=== PATIENT | male | born 1940 | race Caucasian/White ===

== ENCOUNTER 2016-12-09 11:18 | Emergency (ER) | payer OTHER, BC ==
[~2016-12-09] VITALS: Ht 170.2 cm; Wt 107.6 kg
[~2016-12-09 11:18] MED LIST: CHOL2000 PO; CMD1 PO; COEN1CAP40 PO; DOXA-10 PO; ESCI10TA17 PO; FINA5TAB PO; METO-478 PO; OMEG1CAP90 PO; POTA1080 PO; PRED-301 PO; ROSU5TAB PO
[2016-12-09 11:21] VITALS: Ht 170.2 cm; Wt 107.6 kg
--- NOTE | 2016-12-09 12:17 | DIAGNOSTIC IMAGING REPORT ---
RIGHT RIBS UNILATERAL WITH PA CHEST CLINICAL HISTORY: FALL, CHEST INJURY Right COMPARISON STUDY: Chest 08/29/2015. FINDINGS: Right-sided ventriculoperitoneal shunt is again noted. The heart remains mildly enlarged. No focal lung consolidations. No evidence for pulmonary edema. No pleural effusions. No pneumothorax. No rib fractures. IMPRESSION: No rib fractures. No pneumothorax. Stable mild cardiomegaly. Electronically signed by: Amor Galaviz M.D. 12/09/2016 12:15 PM Dictated Date/Time: 12/09/2016 12:11 PM
[2016-12-09] MEDS ORDERED: NUTR-218 PO (12:27)
[2016-12-09] MEDS ORDERED: OPTIRAY 320 IV PRN (12:45)
[2016-12-09 13:07] LABS: BASO % 0.3 %; BASO ABS # 0.04 K/uL (0-0.2); COMPLETE YES; EOS % 0.2 %; HEMATOCRIT 51.5 % (42-52); IG% 0.9 %; LYMPH % 5.9 %; LYMPH ABS # 0.83 K/uL (1.2-3.4); MEAN CELL VOLUME 95.9 fL (80-100); MEAN CORPUSCULAR HEMOGLOBIN 31.3 pg (25-34); MEAN CORPUSCULAR HGB CONC 32.6 g/dl (32-36); MEAN PLATELET VOLUME 10.5 fL (7.4-10.4); MONO % 6.9 %; NEUT % 85.8 %; PLATELET COUNT 203 K/uL (130-400); RED BLOOD COUNT 5.37 M/uL (4.7-6.1); WHITE BLOOD COUNT 13.97 K/uL (4.8-10.8)
[2016-12-09 13:20] LABS: INR 2.6 (0.9-1.1); PARTIAL THROMBOPLASTIN RATIO 1.3; PROTHROMBIN TIME (PATIENT) 29.5 SECONDS (9.0-12.0)
[2016-12-09] MEDS ORDERED: ONDANSETRON INJ 2 MG/ML 2 ML VIAL IV STA (13:43)
[2016-12-09] MEDS ORDERED: HYDROmorphone INJ 0.5 MG/0.5 ML SYR IV PRN (13:45)
[2016-12-09 14:02] LABS: BUN/CREATININE RATIO 12.5 (10-20); CREATININE 1.2 mg/dl (0.60-1.40); POTASSIUM 4.7 mmol/L (3.5-5.1)
[2016-12-09 14:03] LABS: CALCIUM 9.1 mg/dl (8.5-10.1)
--- NOTE | 2016-12-09 14:19 | DIAGNOSTIC IMAGING REPORT ---
ABDOMEN AND PELVIS CT WITH IV CONTRAST CT DOSE: 1285.18 mGy.cm HISTORY: RUQ impact, fall, RUQ TENDERNESS TO PALPATION., on coumadin TECHNIQUE: Multiaxial CT images of the abdomen and pelvis were performed following the use of intravenous contrast. COMPARISON STUDY: Abdomen and pelvis CT 08/19/2015. FINDINGS: The heart is mildly enlarged. Mild interstitial thickening at the lung bases. Nondisplaced fracture within the right anterior seventh rib cartilage. Small overlying soft tissue contusion within the right anterior chest wall. There is a right-sided ventriculoperitoneal shunt with the tip terminating in the left midabdomen anteriorly. No fluid collections surrounding the shunt catheter. No pneumoperitoneum. No pneumatosis. The liver, gallbladder, spleen, pancreas, and adrenal glands are unremarkable. Bilateral cortical renal scarring. A few subcentimeter hypodense lesions within the kidneys which are too small to characterize. Dominant lesion within the right kidney measures 9.5 mm within the lower pole. Left-sided nephrolithiasis. Dominant stone is seen within the left renal pelvis and measures 9 mm. The bladder is unremarkable. No bowel wall thickening or obstruction. Colonic diverticulosis. IMPRESSION: 1. A nondisplaced fracture within the right anterior seventh rib cartilage. 2. Colonic diverticulosis. No bowel wall thickening or obstruction. 3. Left-sided nephrolithiasis. No hydronephrosis. 4. Additional findings as described above. Electronically signed by: Amor Galaviz M.D. 12/09/2016 2:18 PM Dictated Date/Time: 12/09/2016 2:09 PM
[2016-12-09] MEDS ORDERED: DOXYCYCLINE HYCLATE 100 MG CAP PO ONE (15:56)
[2016-12-09] MEDS ORDERED: EMPTY 8 DRAM VIAL ONE (15:57)
[2016-12-09] MEDS ORDERED: DOXYCYCLINE HYCLATE 100 MG CAP PO STA (16:00)
[2016-12-09] MEDS ORDERED: OXYC1TAB3 PO (16:04)
[2016-12-09 16:26] VITALS: BP 151/86; PULSE 98; TEMP 36.8; O2SAT 93
--- NOTE | 2016-12-09 20:36 | EMERGENCY ROOM VISIT NOTE ---
History Report prepared by Mike: Aimee De La Rosa Under the Supervision of: Dr. Corby Ruby M.D. First contact with patient: 12:18 Chief Complaint: CHEST INJURY Stated Complaint: RIGHT SIDED CHEST INJURY-WET FLOOR History of Present Illness The patient is a 76 year old male who presents to the Emergency Room with complaints of persistent right rib and chest pain that began prior to arrival. He currently rates his discomfort as a 5/10 in severity. The patient states that today he slipped on wet concrete and fell onto a flat surface onto his right ribs. He denies any head trauma. The patient states that he is on Coumadin for his Atrial Fibrillation. He states that he has had his INR checked within the last month. The patient states that his tetanus is up to date. He states that he took two ibuprofen for his discomfort. The patient reports increased pain with breathing. The patient additionally notes that he scratched his right arm due to the fall. He reports that he has a history of a [employer]OR [employer] shunt for normal pressure hydrocephalus. Additionally, the patient's reports that the patient had a tick bite a few days ago to his left arm, noting that she doesn't feel that she got the entire tick out. She states that the tick was on the patient for over 24 hours until he noticed the tick. Pt denies LOC, headache, visual changes, neck pain, breathing difficulties, nausea, vomiting, abdominal pain, back pain, numbness, weakness, or other complaints. Source of History: patient Onset: prior to arrival Position: chest (right), other (right rib) Symptom Intensity: 5/10 Timing: other (persistent) Modifying Factors (Worsening): breathing Note: Associated Symptoms: scratches on right arm Review of Systems See HPI for pertinent positives and negatives. A total of ten systems were reviewed and were otherwise negative. 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 Family History Kidney disease Kidney stones Social History Smoking Status: Never Smoker Alcohol Use: none Marital Status: Housing Status: lives with significant other Occupation Status: retired Current/Historical Medications Scheduled Cholecalciferol (Vitamin D3), 2,000 MG PO DAILY Coenzyme Q10 (Ubidecarenone) (Co Q-10), 400 MG PO DAILY Doxazosin Mesylate (Doxazosin Mesylate), 8 MG PO DAILY Escitalopram (Lexapro), 10 MG PO DAILY Finasteride (Proscar), 5 MG PO DAILY Metoprolol Succinate (Toprol Xl), 25 MG PO DAILY Nutritional Supplements (Juice Plus Fibre), Unknown Dose PO 6XWK [place]-3 Fatty Acids (Fish Oil Pearls), 1,400 MG PO BID Potassium Citrate (Urocit-K), 20 MEQ PO BID Prednisone (Prednisone), 5 MG PO DAILY Rosuvastatin Calcium (Crestor), 5 MG PO MON,WED,FRI Warfarin Sod (Coumadin), 2 MG PO DAILY Scheduled PRN Oxycodone Ir (Roxicodone Ir), 1-2 TAB PO Q4H PRN for Pain Allergies Coded Allergies: Amoxicillin (Verified Allergy, Intermediate, rash, 12/09/16) Penicillins (Verified Allergy, Unknown, AMOXICILLIN CAUSES RASH, NO RESP. PROBLEMS PER DR. LORENZO, 12/09/16) DR. LORENZO'S H&P STATES AMOX. CAUSES RASH. Physical Exam Vital Signs Date Time Temp Pulse Resp B/P Pulse Ox O2 Delivery O2 Flow Rate FiO2 12/09/16 16:26 36.8 98 16 151/86 93 12/09/16 14:20 98 16 151/86 93 Room Air 12/09/16 13:22 100 16 145/89 93 Room Air 12/09/16 11:21 36.8 86 20 134/74 99 Room Air Physical Exam GENERAL: Awake, alert, well-appearing, in no distress HENT: Normocephalic, atraumatic. Oropharynx unremarkable. EYES: Normal conjunctiva. Sclera non-icteric. NECK: Supple. No nuchal rigidity. FROM. No JVD. RESPIRATORY: Clear to auscultation. CARDIAC: Regular rate, normal rhythm. Extremities warm and well perfused. Pulses equal. ABDOMEN: Abrasion and bruise to right upper quadrant, tenderness to the right upper quadrant. Soft, non-distended. No rebound or guarding. No masses. RECTAL: Deferred. MUSCULOSKELETAL: Tenderness to right anterior ribs. Abrasion to right wrist. The back is symmetrical on inspection without obvious abnormality. There is no CVA tenderness to palpation. No joint edema. LOWER EXTREMITIES: Calves are equal size bilaterally and non-tender. No edema. No discoloration. NEURO: Normal sensorium. No sensory or motor deficits noted. SKIN: No rash or jaundice noted. Medical Decision & Procedures ER Provider Diagnostic Interpretation: Radiology results as stated below per my review and radiologist interpretation: RIGHT RIBS UNILATERAL WITH PA CHEST CLINICAL HISTORY: FALL, CHEST INJURY Right COMPARISON STUDY: Chest 08/29/2015. FINDINGS: Right-sided ventriculoperitoneal shunt is again noted. The heart remains mildly enlarged. No focal lung consolidations. No evidence for pulmonary edema. No pleural effusions. No pneumothorax. No rib fractures. IMPRESSION: No rib fractures. No pneumothorax. Stable mild cardiomegaly. Electronically signed by: Amor Galaviz M.D. 12/09/2016 12:15 PM Dictated Date/Time: 12/09/2016 12:11 PM ABDOMEN AND PELVIS CT WITH IV CONTRAST CT DOSE: 1285.18 mGy.cm HISTORY: RUQ impact, fall, RUQ TENDERNESS TO PALPATION., on coumadin TECHNIQUE: Multiaxial CT images of the abdomen and pelvis were performed following the use of intravenous contrast. COMPARISON STUDY: Abdomen and pelvis CT 08/19/2015. FINDINGS: The heart is mildly enlarged. Mild interstitial thickening at the lung bases. Nondisplaced fracture within the right anterior seventh rib cartilage. Small overlying soft tissue contusion within the right anterior chest wall. There is a right-sided ventriculoperitoneal shunt with the tip terminating in the left midabdomen anteriorly. No fluid collections surrounding the shunt catheter. No pneumoperitoneum. No pneumatosis. The liver, gallbladder, spleen, pancreas, and adrenal glands are unremarkable. Bilateral cortical renal scarring. A few subcentimeter hypodense lesions within the kidneys which are too small to characterize. Dominant lesion within the right kidney measures 9.5 mm within the lower pole. Left-sided nephrolithiasis. Dominant stone is seen within the left renal pelvis and measures 9 mm. The bladder is unremarkable. No bowel wall thickening or obstruction. Colonic diverticulosis. IMPRESSION: 1. A nondisplaced fracture within the right anterior seventh rib cartilage. 2. Colonic diverticulosis. No bowel wall thickening or obstruction. 3. Left-sided nephrolithiasis. No hydronephrosis. 4. Additional findings as described above. Electronically signed by: Amor Galaviz M.D. 12/09/2016 2:18 PM Dictated Date/Time: 12/09/2016 2:09 PM Laboratory Results 12/09/16 11:30 Red Blood Count 5.37, Mean Corpuscular Volume 95.9, Mean Corpuscular Hemoglobin 31.3, Mean Corpuscular Hemoglobin Concent 32.6, Mean Platelet Volume 10.5, Neutrophils (%) (Auto) 85.8, Lymphocytes (%) (Auto) 5.9, Monocytes (%) (Auto) 6.9, Eosinophils (%) (Auto) 0.2, Basophils (%) (Auto) 0.3, Neutrophils # (Auto) 11.97, Lymphocytes # (Auto) 0.83, Monocytes # (Auto) 0.97, Eosinophils # (Auto) 0.03, Basophils # (Auto) 0.04 12/09/16 11:30 Test 12/09/16 11:30 White Blood Count 13.97 K/uL (4.8-10.8) Red Blood Count 5.37 M/uL (4.7-6.1) Hemoglobin 16.8 g/dL (14.0-18.0) Hematocrit 51.5 % (42-52) Mean Corpuscular Volume 95.9 fL (80-100) Mean Corpuscular Hemoglobin 31.3 pg (25-34) Mean Corpuscular Hemoglobin Concent 32.6 g/dl (32-36) Platelet Count 203 K/uL (130-400) Mean Platelet Volume 10.5 fL (7.4-10.4) Neutrophils (%) (Auto) 85.8 % Lymphocytes (%) (Auto) 5.9 % Monocytes (%) (Auto) 6.9 % Eosinophils (%) (Auto) 0.2 % Basophils (%) (Auto) 0.3 % Neutrophils # (Auto) 11.97 K/uL (1.4-6.5) Lymphocytes # (Auto) 0.83 K/uL (1.2-3.4) Monocytes # (Auto) 0.97 K/uL (0.11-0.59) Eosinophils # (Auto) 0.03 K/uL (0-0.5) Basophils # (Auto) 0.04 K/uL (0-0.2) RDW Standard Deviation 48.8 fL (36.4-46.3) RDW Coefficient of Variation 13.8 % (11.5-14.5) Immature Granulocyte % (Auto) 0.9 % Immature Granulocyte # (Auto) 0.13 K/uL (0.00-0.02) Prothrombin Time 29.5 SECONDS (9.0-12.0) Prothromb Time International Ratio 2.6 (0.9-1.1) Activated Partial Thromboplast Time 34.6 SECONDS (21.0-31.0) Partial Thromboplastin Ratio 1.3 Anion Gap 9.0 mmol/L (3-11) Est Creatinine Clear Calc Drug Dose 61.3 ml/min Estimated GFR () 67.7 Estimated GFR (Non- 58.4 BUN/Creatinine Ratio 12.5 (10-20) Calcium Level 9.1 mg/dl (8.5-10.1) Total Bilirubin 0.6 mg/dl (0.2-1) Direct Bilirubin 0.1 mg/dl (0-0.2) Aspartate Amino Transf (AST/SGOT) 40 U/L (15-37) Alanine Aminotransferase (ALT/SGPT) 44 U/L (12-78) Alkaline Phosphatase 74 U/L (45-117) Total Protein 8.0 gm/dl (6.4-8.2) Albumin 3.6 gm/dl (3.4-5.0) Laboratory results reviewed by me Medications Administered Medications (Trade) Dose Ordered Sig/Patrice Route Start Time Stop Time Status Last Admin Dose Admin Ondansetron HCl (Zofran Inj) 4 mg NOW STAT IV 12/09/16 13:43 12/09/16 13:45 DC 12/09/16 13:51 4 MG Hydromorphone HCl (Dilaudid Inj) 0.5 mg Q15M PRN IV 12/09/16 13:45 12/09/16 17:04 DC 12/09/16 13:52 0.5 MG Doxycycline Hyclate (Vibramycin Cap) 200 mg STK-MED ONCE PO 12/09/16 15:56 12/09/16 15:57 DC 12/09/16 16:42 200 MG ECG Indication: chest pain Rate (beats per minute): 101 Rhythm: atrial fibrillation (with RVR) Findings: nonspecific-ST abn, PVC Comparison ECG Date: 08/19/15 Change: no significant change ED Course 1220: The patient was evaluated in room A2. A complete history and physical exam was performed. 1343: Ordered Zofran Inj 4 mg IV. 1345: Ordered Dilaudid Inj 0.5 mg IV. 1550: I reevaluated the patient and he is doing well. I removed the tick mouth from the patient. I discussed the exam findings with him and I discussed the treatment plan. He verbalized complete understanding and agreement. He is ready to go home. 1556: Ordered Vibramycin Cap 200 mg PO. Medical Decision Blood pressure screening: Patient was found to have an elevated blood pressure and was referred to their primary doctor for recheck and further treatment. Medication Reconciliation: I attest that I have personally reviewed the patient' s current medication list Triage Nursing notes reviewed. The patient's presentation and history were concerning for right-sided chest wall pain from an accidental fall. Etiologies such as fracture, dislocation, soft tissue injury, intra-abdominal, intrathoracic, intracranial as well as other traumatic pathologies were entertained. The patient was evaluated. He struck the right lower anterior ribs on a flat surface. He has an abrasion. This was treated and dressed. The patient had some right upper quadrant tenderness. He suffered no head injury. His upper extremities were benign as was the lower extremities. The patient had blood work obtained. Imaging was ordered. Chest x-ray did not reveal any abnormal findings. The patient was point tender over the ribs. The nucleus suspect a rib fracture. Because of the right upper quadrant tenderness and anticoagulation used the patient underwent CT imaging. The patient did have a slight leukocytosis which I believe is a stress response. His INR was therapeutic at 2.6. His LFTs were unremarkable. CT imaging did reveal a right- sided rib fracture but no intra-abdominal hemorrhage. The patient was treated with a dose of IV Dilaudid and Zofran and felt much better with this. I discussed conservative management with the patient and his and they were in agreement. The patient will be prescribed oxycodone which she has had in the past. He also had a tick mouth parts embedded in the left forearm. I did remove this standard fashion after alcohol skin prep using an 18-gauge needle. Bacitracin and bandages applied. Wound care was discussed. The patient was given a dose of doxycycline 200 mg to take with him and use at dinner time for prophylaxis. The patient was also given incentive spirometer. He will follow- up closely as an outpatient. If he worsens in any way he will be coming back to the emergency department for reevaluation. I did discuss the precautions with rib fractures as well as with pain medications.I gave my usual and customary discussion regarding this issue. By the evaluation outlined above other emergent etiologies such as those listed in the differential, as well as others, were deemed relatively unlikely. The patient and were informed about the findings as listed above. All questions were answered and they were pleased with the treatment. Return instructions were outlined and the patient was discharged in stable condition. The patient was referred to his PCP for follow-up for a recheck of the current condition. The chart was completed utilizing [employer] Speech voice recognition software. Grammatical errors, random word insertions, pronoun errors, and incomplete sentences are an occasional consequence of this system due to software limitations, ambient noise, and hardware issues. Any formal questions or concerns about the content, text, or information contained within the body of this dictation should be directly addressed to the physician for clarification. [place] Drug Monitoring Program Search Results: patient reviewed within database, no issues identified Impression Primary Impression: Right rib fracture Additional Impressions: Contusion of right chest wall Tick bite Scribe Attestation The scribe's documentation has been prepared under my direction and personally reviewed by me in its entirety. I confirm that the note above accurately reflects all work, treatment, procedures, and medical decision making performed by me. Departure Information Dispostion Home / Self-Care Prescriptions Oxycodone Ir (Roxicodone Ir) 5 Mg Tab 1-2 TAB PO Q4H Y for Pain, #20 TAB Prov: Corby Ruby MD 12/09/16 Referrals Corby Vega M.D. (PCP) Forms IMPORTANT VISIT INFORMATION Patient Instructions My [facility] Additional Instructions Do not drive today due to medications received in the emergency department. Oxycodone (OxyIR) 5mg: Take 1-2 pills every four hours for breakthrough pain. Avoid alcohol, operating machinery or dangerous equipment, working on ladders or roofs, DRIVING, or situations where being under the influence may be dangerous. It is recommended to use a stool softener such as Colace, 100mg twice daily while taking this medication to avoid constipation. Every two to 3 hours take slow deep breaths to exercise your lungs. Do this for about 10 minutes each time. Bruised or cracked ribs can lead to pneumonia and exercising your lungs may help prevent this. Use the incentive spirometer for the lung exercises. Return to the ER for worsening chest pain, difficulty breathing, fevers, vomiting, worsening of your condition, or as needed. Take the doxycycline 200 mg with dinner tonight. Do not take with dairy products. Follow-up with your primary care physician in 2 to 3 days for a recheck of your current condition. WOUND CARE INSTRUCTIONS: Bacitracin to wounds once daily. Use a non-stick dressing such as a large band-aid. Change the dressings once a day. Tylenol as needed for pain. Allow your wounds to air dry several hours per day when you are resting, but it is a good idea to keep them covered while sleeping to prevent irritation and the sheets sticking to the wound. Apply direct pressure for any bleeding. Return to the ER immediately for spreading redness, fevers, pus-like drainage, severe pain, or as needed. Problem Qualifiers
== END 2016-12-09 16:27 | disposition home or self-care (01) ==
LOC: C.EDB 11:20 → C.EDA 16:27
DX: S22.31XA Fracture of one rib, right side, initial encounter for closed fracture (principal); S20.211A Contusion of right front wall of thorax, initial encounter; W57.XXXA Bitten or stung by nonvenomous insect and other nonvenomous arthropods, initial encounter; I48.91 Unspecified atrial fibrillation; E11.9 Type 2 diabetes mellitus without complications; E78.5 Hyperlipidemia, unspecified; Z98.890 Other specified postprocedural states; Z87.442 Personal history of urinary calculi; Z98.2 Presence of cerebrospinal fluid drainage device; Z79.01 Long term (current) use of anticoagulants; Z79.899 Other long term (current) drug therapy; Z84.1 Family history of disorders of kidney and ureter

== ENCOUNTER → 2017-06-15 | Outpatient (CLI) | payer OTHER, BC ==
[~2017-06-15] MED LIST changes: +NUTR-218 PO
[2017-06-15 12:42] LABS: BASO % 0.3 %; BASO ABS # 0.04 K/uL (0-0.2); COMPLETE YES; EOS % 1.1 %; HEMATOCRIT 50.1 % (42-52); IG% 0.7 %; LYMPH % 16.8 %; LYMPH ABS # 2.03 K/uL (1.2-3.4); MEAN CELL VOLUME 96.3 fL (80-100); MEAN CORPUSCULAR HEMOGLOBIN 32.1 pg (25-34); MEAN CORPUSCULAR HGB CONC 33.3 g/dl (32-36); MEAN PLATELET VOLUME 11.4 fL (7.4-10.4); MONO % 8.9 %; NEUT % 72.2 %; PLATELET COUNT 192 K/uL (130-400); WHITE BLOOD COUNT 12.07 K/uL (4.8-10.8)
[2017-06-15 13:15] LABS: ESTIMATED AVERAGE GLUCOSE 123 mg/dl; HA1C FLAG Normal (Normal)
[2017-06-15 13:45] LABS: ALT/SGPT 31 U/L (12-78); AST/SGOT 23 U/L (15-37); BLOOD UREA NITROGEN 20 mg/dl (7-18); BUN/CREATININE RATIO 17.3 (10-20); CALCIUM 8.6 mg/dl (8.5-10.1); CARBON DIOXIDE 25 mmol/L (21-32); CHLORIDE 107 mmol/L (98-107); CREATININE 1.13 mg/dl (0.60-1.40); GLUCOSE 95 mg/dl (70-99); POTASSIUM 4.1 mmol/L (3.5-5.1); SODIUM 138 mmol/L (136-145)
[2017-06-15 13:48] LABS: ALB/GLOB RATIO 0.8 (0.9-2); ALKALINE PHOSPHATASE 69 U/L (45-117); CHOLESTEROL 159 mg/dl (0-200); CHOLESTEROL/HDL RATIO 3.8; HDL CHOLESTEROL 42 mg/dl; LDL CHOLESTEROL CALCULATED 92 mg/dl; TRIGLYCERIDES 124 mg/dl (0-150); VERY LOW DENSITY LIPOPROT CALC 25 mg/dl
== END | disposition home or self-care (01) ==
LOC: C.LABPVFM 08:47
PROVIDERS: ATTEND Internal Medicine Pulmonary Disease
DX: E78.00 Pure hypercholesterolemia, unspecified (principal); D86.9 Sarcoidosis, unspecified; G47.33 Obstructive sleep apnea (adult) (pediatric); G47.31 Primary central sleep apnea; R41.3 Other amnesia; S22.39XA Fracture of one rib, unspecified side, initial encounter for closed fracture; X58.XXXA Exposure to other specified factors, initial encounter

== ENCOUNTER 2018-02-21 23:45 | Emergency (ER) | payer OTHER, BC ==
[~2018-02-21] VITALS: Ht 172.7 cm; Wt 103.0 kg
[2018-02-21 23:49] VITALS: TEMP 36.5; Ht 172.7 cm; Wt 103.0 kg
[2018-02-22] MEDS ORDERED: FENTANYL CITRATE INJ 50 MCG/1 ML 2 ML VIAL IV STA (00:08)
--- NOTE | 2018-02-22 00:28 | EMERGENCY ROOM VISIT NOTE ---
History Report prepared by Mike: Brodie Hooper Under the Supervision of: Dr. Krzysztof Villatoro M.D. First contact with patient: 23:55 Chief Complaint: LEG PAIN,LEG INJURY Stated Complaint: RT LEG/KNEE PAIN History of Present Illness The patient is a 77 year old male who presents to the Emergency Room with complaints of intermittent right thigh pain that began a week ago. Patient states the pain is worsened with pressure. He adds he has a right hammer abrasion that occurred tonight after falling trying to put his shoe on. Patient is present with his . states the patient has also appeared weaker than usual lately. Patient states he still has the right thigh pain in the ER. Past medical history includes atrial fibrillation which he takes Coumadin for, Sarcoidosis which he takes chronic prednisone for, and a brain shunt. Patient states his last Coumadin level was normal. Patient adds he had a left knee surgery performed by Dr. Guy. Patient denies back pain, bowel symptoms, urinary symptoms, spasming, vision changes, other injuries, fevers, chills, abdominal pain, nausea, muscle aches, or new medications. He denies a history of vascular problems or heart attacks. Source of History: patient, spouse/significant other () Onset: A week ago Position: leg (right thigh) Timing: intermittent Modifying Factors (Relieving): other (None) Associated Symptoms: No fevers, No chills, No nausea, No abdominal pain, No back pain, No urinary symptoms Note: Negative bowel symptoms, spasming, vision changes, other injuries, and muscle aches. Review of Systems See HPI for pertinent positives & negatives. A total of 10 systems reviewed and were otherwise negative. 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 (8) Right ureteral calculus (9) SARCOIDOSIS (10) Unspecified kidney surgery Surgical Problems: (1) S/P CLOTH DRIER shunt Family History Kidney disease Kidney stones Social History Smoking Status: Never Smoker Alcohol Use: none Marital Status: Housing Status: lives with significant other Occupation Status: retired Current/Historical Medications Scheduled Cholecalciferol (Vitamin D3), 2,000 MG PO DAILY Coenzyme Q10 (Ubidecarenone) (Co Q-10), 400 MG PO DAILY Doxazosin Mesylate (Doxazosin Mesylate), 8 MG PO DAILY Escitalopram (Lexapro), 10 MG PO DAILY Finasteride (Proscar), 5 MG PO DAILY Memantine (Namenda), 10 MG PO BID Metoprolol Succinate (Toprol Xl), 25 MG PO DAILY Nutritional Supplements (Juice Plus Fibre), Unknown Dose PO 6XWK [place]-3 Fatty Acids (Fish Oil Pearls), 1,400 MG PO BID Potassium Citrate (Alkalinizer (Urocit-K 10), 20 MEQ PO BID Prednisone (Prednisone), 5 MG PO DAILY Rosuvastatin Calcium (Crestor), 5 MG PO MON,WED,FRI Warfarin Sod (Coumadin), 2 MG PO DAILY Allergies Coded Allergies: Amoxicillin (Verified Allergy, Intermediate, rash, 02/22/18) Penicillins (Verified Allergy, Unknown, AMOXICILLIN CAUSES RASH, NO RESP. PROBLEMS PER DR. GUY, 02/22/18) DR. GUY'S H&P STATES AMOX. CAUSES RASH. Physical Exam Vital Signs Date Time Temp Pulse Resp B/P (MAP) Pulse Ox O2 Delivery O2 Flow Rate FiO2 02/22/18 02:54 81 22 117/88 94 02/22/18 01:53 74 22 127/86 94 Room Air 02/22/18 00:57 93 17 145/91 93 Room Air 02/22/18 00:31 79 20 130/90 93 Room Air 02/22/18 00:29 78 02/21/18 23:49 36.5 87 24 138/84 96 Room Air Physical Exam GENERAL: Patient is uncomfortable appearing, appears weak and has difficulty sitting up, and in moderate distress. EYES: No scleral icterus, unremarkable pupils. ENT: Mucous membranes moist, no nasal congestion. NECK: No masses appreciated, no meningismus, trachea is midline. RESPIRATORY: No dyspnea. Clear to auscultation and equal bilaterally. No wheeze , no rhonchi. CARDIOVASCULAR: Irregular rate and rhythm. No murmurs, rubs, gallops appreciated. GASTROINTESTINAL: Abdomen soft, nontender, no peritonitis. Bowel sounds positive. No masses appreciated. BACK: No midline tenderness, no CVA tenderness EXTREMITIES: Vague tenderness over mid right thigh, normal motion all extremities, no cyanosis, no edema. NEUROLOGIC: Alert and oriented, no acute motor or sensory deficits, no focal weakness, cranial nerves grossly intact. SKIN: No rash, no jaundice, no diaphoresis. Medical Decision & Procedures ER Provider Diagnostic Interpretation: Radiology results and stated below per my review and interpretation: FOUR VIEW RIGHT FEMUR X-RAY: X-ray shows atherosclerotic changes, no fracture, and no dislocation. THREE VIEW LUMBAR X-RAY: X-ray shows age indeterminate compression fracture of L5, difficult to appreciate but appears similar to CT from 2017, and no dislocation. ONE VIEW PELVIS X-RAY: X-ray shows no fracture and no dislocation. Laboratory Results 02/22/18 00:15 Red Blood Count 5.28, Mean Corpuscular Volume 94.7, Mean Corpuscular Hemoglobin 32.8, Mean Corpuscular Hemoglobin Concent 34.6, Mean Platelet Volume 10.6, Neutrophils (%) (Auto) 73.5, Lymphocytes (%) (Auto) 14.4, Monocytes (%) (Auto) 9.7, Eosinophils (%) (Auto) 1.4, Basophils (%) (Auto) 0.2, Neutrophils # (Auto) 9.11, Lymphocytes # (Auto) 1.78, Monocytes # (Auto) 1.20, Eosinophils # (Auto) 0.17, Basophils # (Auto) 0.03 02/22/18 00:15 Test 02/22/18 00:15 White Blood Count 12.39 K/uL (4.8-10.8) Red Blood Count 5.28 M/uL (4.7-6.1) Hemoglobin 17.3 g/dL (14.0-18.0) Hematocrit 50.0 % (42-52) Mean Corpuscular Volume 94.7 fL (80-100) Mean Corpuscular Hemoglobin 32.8 pg (25-34) Mean Corpuscular Hemoglobin Concent 34.6 g/dl (32-36) Platelet Count 203 K/uL (130-400) Mean Platelet Volume 10.6 fL (7.4-10.4) Neutrophils (%) (Auto) 73.5 % Lymphocytes (%) (Auto) 14.4 % Monocytes (%) (Auto) 9.7 % Eosinophils (%) (Auto) 1.4 % Basophils (%) (Auto) 0.2 % Neutrophils # (Auto) 9.11 K/uL (1.4-6.5) Lymphocytes # (Auto) 1.78 K/uL (1.2-3.4) Monocytes # (Auto) 1.20 K/uL (0.11-0.59) Eosinophils # (Auto) 0.17 K/uL (0-0.5) Basophils # (Auto) 0.03 K/uL (0-0.2) RDW Standard Deviation 46.7 fL (36.4-46.3) RDW Coefficient of Variation 13.6 % (11.5-14.5) Immature Granulocyte % (Auto) 0.8 % Immature Granulocyte # (Auto) 0.10 K/uL (0.00-0.02) Erythrocyte Sedimentation Rate 11 mm/hr (0-14) Prothrombin Time 12.6 SECONDS (9.0-12.0) Prothromb Time International Ratio 1.2 (0.9-1.1) Activated Partial Thromboplast Time 27.3 SECONDS (21.0-31.0) Partial Thromboplastin Ratio 1.1 Anion Gap 7.0 mmol/L (3-11) Est Creatinine Clear Calc Drug Dose 61.0 ml/min Estimated GFR () 68.6 Estimated GFR (Non- 59.2 BUN/Creatinine Ratio 20.2 (10-20) Calcium Level 9.0 mg/dl (8.5-10.1) Magnesium Level 1.9 mg/dl (1.8-2.4) Total Bilirubin 0.3 mg/dl (0.2-1) Aspartate Amino Transf (AST/SGOT) 30 U/L (15-37) Alanine Aminotransferase (ALT/SGPT) 33 U/L (12-78) Alkaline Phosphatase 116 U/L (45-117) Total Creatine Kinase 103 U/L (39-308) C-Reactive Protein 0.94 mg/dl (0-0.29) Total Protein 7.5 gm/dl (6.4-8.2) Albumin 3.6 gm/dl (3.4-5.0) Globulin 3.9 gm/dl (2.5-4.0) Albumin/Globulin Ratio 0.9 (0.9-2) Laboratory results as reviewed by me. Medications Administered Medications (Trade) Dose Ordered Sig/Patrice Route Start Time Stop Time Status Last Admin Dose Admin Fentanyl Citrate (Fentanyl Inj) 50 mcg NOW STAT IV 02/22/18 00:08 02/22/18 00:12 DC 02/22/18 00:27 50 MCG Sodium Chloride 500 ml @ 999 mls/hr Q31M STAT IV 02/22/18 01:36 02/22/18 02:06 DC 02/22/18 01:53 999 MLS/HR Oxycodone HCl (Roxicodone Immediate Rel 5MG Home Pack) 1 homepack UD ONCE PO 02/22/18 02:15 02/22/18 02:16 DC 02/22/18 02:49 1 HOMEPACK ED Course 0004: The patient was evaluated in room B3B. A complete history and physical exam was performed. 0115: I reevaluated the patient. He states he is feeling better and sleepy after receiving his pain medications. He is agreeable to a US of his leg. Patient admits to forgetting to take his Coumadin today and possibly the day before as well. 0219: Reevaluated the patient. He states that he feels good and would like to try going home. I discussed the need for return at any time if his symptoms worsen. Discussed results and discharge instructions. He verbalized understanding and agreement. The patient is ready for discharge. Medical Decision 77 yr old male with right thigh pain bothering him last few days. Worse after walking around at wedding yesterday. No radicular symptoms otherwise nor neuro deficits. Excellent distal pulses and movement. No swelling nor bruising nor erythema. Labs without inflammatory markers nor rhabdo. On statin but isolated to single area thigh thus seems unlikely statin related. Lumbar xrays with L5 compression fracture likely old and seems similar to office nurse from CT last year. Pelvis xray unremarkable. Even a few hours post Fentanyl he is feeling much better. Suspect some mild dehydration consistent with mild BUN elevation thus IV fluids which may be helping symptoms as well. There is no evidence this is infectious. No neuro/arterial deficits on multiple checks. No DVT noted (low INR likely missed coumadin dose yesterday). He is feeling well and wishes to go home. Previously did well with Percocet thus limited number which if used and worsening RTED. He will follow up with PCP this week for discussion on further imaging, etc. He and understand they can always return if worsening or other concerns. I suspect this is MSK, possibly even small hematoma, given location, point pain, and worse with walking yesterday. Head Trauma GCS Score: 15 Medication Reconcilliation Current Medication List: was personally reviewed by me Blood Pressure Screening Patient's blood pressure: Normal blood pressure Blood pressure disposition: Did not require urgent referral Impression Primary Impression: Right thigh pain Additional Impression: Subtherapeutic international normalized ratio (INR) Scribe Attestation The scribe's documentation has been prepared under my direction and personally reviewed by me in its entirety. I confirm that the note above accurately reflects all work, treatment, procedures, and medical decision making performed by me. Departure Information Dispostion Home / Self-Care Referrals Corby Vega M.D. (PCP) Patient Instructions My [facility] Additional Instructions You have received a narcotic pain medication. These medications may cause drowsiness and should not be used with other sedative medications. Do not drive , drink alcohol, perform dangerous activities, nor make important decisions after taking these medications. vermin exterminator use or inappropriate use may lead to addiction. These may cause constipation so keep well hydrated and use stool softener as needed. Rest and avoid exertion over the next 48 hours. Return if worsening pain, developing weakness, loss of bowel/bladder function, rashes, fevers, swelling or other concerns. We are always here to help. It is important you follow up with your primary care provider in the next few days for recheck. Problem Qualifiers
[2018-02-22 00:31] LABS: BASO % 0.2 %; BASO ABS # 0.03 K/uL (0-0.2); EOS % 1.4 %; EOS ABS # 0.17 K/uL (0-0.5); HEMOGLOBIN 17.3 g/dL (14.0-18.0); LYMPH % 14.4 %; LYMPH ABS # 1.78 K/uL (1.2-3.4); MEAN CELL VOLUME 94.7 fL (80-100); MEAN CORPUSCULAR HEMOGLOBIN 32.8 pg (25-34); MEAN CORPUSCULAR HGB CONC 34.6 g/dl (32-36); MEAN PLATELET VOLUME 10.6 fL (7.4-10.4); MONO % 9.7 %; NEUT % 73.5 %; NEUT ABS # 9.11 K/uL (1.4-6.5); PLATELET COUNT 203 K/uL (130-400); RED CELL DISTRIBUTION WIDTH CV 13.6 % (11.5-14.5); RED CELL DISTRIBUTION WIDTH SD 46.7 fL (36.4-46.3); WHITE BLOOD COUNT 12.39 K/uL (4.8-10.8)
[2018-02-22 00:43] LABS: INR 1.2 (0.9-1.1); PTT PATIENT 27.3 SECONDS (21.0-31.0)
[2018-02-22 00:58] LABS: ALBUMIN 3.6 gm/dl (3.4-5.0); CREATININE 1.18 mg/dl (0.60-1.40); POTASSIUM 4.1 mmol/L (3.5-5.1); TOTAL PROTEIN 7.5 gm/dl (6.4-8.2)
[2018-02-22] MEDS ORDERED: POTATAB2 PO (01:31)
[2018-02-22] MEDS ORDERED: NMN10 PO (01:31)
[2018-02-22] MEDS ORDERED: SODIUM CHLORIDE 0.9% 500ML 500 ML IV STA (01:36)
[2018-02-22] MEDS ORDERED: OXYCODONE IR HOME PACK PO ONE (02:15)
[2018-02-22 02:54] VITALS: BP 117/88; PULSE 81; O2SAT 94
--- NOTE | 2018-02-22 06:45 | DIAGNOSTIC IMAGING REPORT ---
R FEMUR 2 VIEWS ROUTINE CLINICAL HISTORY: right thigh pain pain COMPARISON: None. DISCUSSION: Moderate degenerative changes of the right hip as well as right knee. No well-defined acute bony abnormality. Cortical margins are intact. Bony mineralization is diminished. There is no evidence for soft tissue swelling. IMPRESSION: Moderate degenerative change. Osteopenia. No acute process. The above report was generated using voice recognition software. It may contain grammatical, syntax or spelling errors. Electronically signed by: Cyrus Rocha M.D. 02/22/2018 6:44 AM Dictated Date/Time: 02/22/2018 6:42 AM
--- NOTE | 2018-02-22 06:47 | DIAGNOSTIC IMAGING REPORT ---
PELVIS 1 OR 2 VIEW ROUTINE CLINICAL HISTORY: right thigh pain pain COMPARISON: None. DISCUSSION: The bones and joint spaces appear intact. There is no evidence of fracture, dislocation or bony disease. There is no evidence for soft tissue swelling. Moderate generalized degenerative change. Osteopenia. IMPRESSION: No acute process. Degenerative change. Osteopenia. The above report was generated using voice recognition software. It may contain grammatical, syntax or spelling errors. Electronically signed by: Cyrus Rocha M.D. 02/22/2018 6:45 AM Dictated Date/Time: 02/22/2018 6:44 AM
--- NOTE | 2018-02-22 06:49 | DIAGNOSTIC IMAGING REPORT ---
L-SPINE MIN 4 VIEWS ROUTINE HISTORY: Pain. right thigh pain, history back issues COMPARISON: None. FINDINGS: Generalized degenerative change. No evidence for an acute compression deformity. Osteopenia. Degenerative change posterior elements. Several calcifications overlying the left kidney. No subluxation. Moderate degenerative change. IMPRESSION: 1. Generalized degenerative change. 2. No acute process. 3. Several calcifications overlying left kidney. The above report was generated using voice recognition software. It may contain grammatical, syntax or spelling errors. Electronically signed by: Cyrus Rocha M.D. 02/22/2018 6:47 AM Dictated Date/Time: 02/22/2018 6:46 AM
--- NOTE | 2018-02-22 07:36 | DIAGNOSTIC IMAGING REPORT ---
R VENOUS DOPP LOWER EXT UNILAT CLINICAL HISTORY: 77 years-old Male presenting with right upper leg discomfort, low INR. TECHNIQUE: Real-time grayscale and color and spectral Doppler ultrasound imaging of the veins of the right lower extremity was performed. Compression and augmentation were also utilized. COMPARISON: None. FINDINGS: RIGHT: Common femoral vein: Patent. Greater saphenous vein: Patent. Deep femoral vein: Patent. Femoral vein: Patent. Popliteal vein: Patent. Calf veins: Patent. Other: None. IMPRESSION: No evidence of deep venous thrombosis. Electronically signed by: Richar Lilly M.D. 02/22/2018 7:34 AM Dictated Date/Time: 02/22/2018 6:55 AM
== END 2018-02-22 02:51 | disposition home or self-care (01) ==
LOC: C.EDB 23:46
DX: M79.651 Pain in right thigh (principal); R79.1 Abnormal coagulation profile; N17.9 Acute kidney failure, unspecified; I48.91 Unspecified atrial fibrillation; E11.9 Type 2 diabetes mellitus without complications; E78.5 Hyperlipidemia, unspecified; N40.0 Benign prostatic hyperplasia without lower urinary tract symptoms; D86.9 Sarcoidosis, unspecified; Z79.01 Long term (current) use of anticoagulants; Z79.899 Other long term (current) drug therapy; Z88.1 Allergy status to other antibiotic agents; Z88.0 Allergy status to penicillin

== ENCOUNTER 2023-01-10 13:00 | Inpatient (IN) ==
[2023-01-10 14:00] LABS: Basophils # (auto) 0.06 K/uL (0-0.2); Basophils % (auto) 0.4 %; Eosinophils # (auto) 0.07 K/uL (0-0.50); Eosinophils % (auto) 0.5 %; Hemoglobin 15.4 g/dl (14.0-18.0); Immature Granulocytes % (auto) 0.7 %; Lymphocytes # (auto) 1.23 K/uL (1.2-3.4); Lymphocytes % (auto) 8.3 %; Mean Corpuscular Hemoglobin 31.9 pg (25.0-34.0); Mean Corpuscular Hgb Conc 32.8 g/dL (32.0-36.0); Mean Corpuscular Volume 97.3 fL (80.0-100.0); Mean Platelet Volume 10.7 fL (9.4-12.4); Monocytes # (auto) 0.63 K/uL (0.11-0.59); Monocytes % (auto) 4.3 %; Neutrophils # (auto) 12.71 K/uL (1.40-6.50); Neutrophils % (auto) 85.8 %; Platelet Count 220 K/uL (130-400); RDW Coefficient of Variation 13.8 % (11.5-14.5); RDW Standard Deviation 49.5 fL (36.4-46.3); Red Blood Count 4.83 M/uL (4.70-6.10)
--- NOTE | 2023-01-10 14:14 | Emergency Department Note ---
Impression & Plan Hallucinations, Closed rib fracture, Contusion, Parkinson disease, Leukocytosis ED Provider Note ED Provider Note NAME: BETSY NEGRON AGE:82 SEX: Male : 1940 ARRIVES VIA: Private vehicle INFORMANT: Patient ED PROVIDER(s): Rosibel Bruno DO CHIEF COMPLAINT: Hallucinations HPI: This is an 82-year-old male brought in with family at bedside due to concern for worsening mentation and accompanying hallucinations. Patient seen and evaluated here a week and a half ago following a fall. They state he has had prior falls. They state he underwent evaluation including multiple CAT scans which were negative for acute traumatic injury. They states since that fall he has been declining at home with increasing hallucinations, difficulty walking, decreased appetite. No recent change in medications. No other recent illness. Patient does have Parkinson's disease additionally and follows with Dr. Blakely of neurology. Patient denies any current pain other than the bruise at his left flank. He denies headaches, nausea, trouble breathing, change in urine or change in stools. PAST MEDICAL HISTORY:See Below PAST SURGICAL HISTORY:See Below FAMILY HISTORY:See Below SOCIAL HISTORY:See Below HOME MEDICATIONS:See Below ALLERGIES:See Below VITALS:See Below PHYSICAL EXAMINATION: GENERAL: alert, well appearing, well nourished, no distress, non-toxic EYE EXAM: normal conjunctiva, PERRL and EOM's grossly intact OROPHARYNX: no exudate, no erythema, lips, buccal mucosa, and tongue normal and mucous membranes are moist NECK: supple, no nuchal rigidity, no adenopathy, non-tender LUNGS: Clear to auscultation. Normal chest wall mechanics, no w/r/r HEART: no murmurs, S1 normal and S2 normal ABDOMEN: abdomen soft, non-tender, normo-active bowel sounds, no masses, no rebound or guarding. Large ecchymotic area with superficial abrasion noted to the left flank. Dressing from home was removed and a superficial wound approximately 4 x 3 cm was noted. A new dressing with antibiotic ointment and nonadherent gauze was applied by myself. BACK: Back is symmetrical on inspection and there is no deformity, no midline tenderness, no CVA tenderness. SKIN: no rashes, petechiae, orbruising UPPER EXTREMITIES: upper extremities are grossly normal. FROM, nml pulses b/l. LOWER EXTREMITIES: No pitting edema. FROM, nml pulses b/l. NEURO EXAM: Patient oriented to place, knows family, cranial nerves II-XII grossly intact, normal speech, no facial droop,nogross weakness of arms, no gross weakness of legs. Gross sensation intact. No ataxia. Patient did have hallucinations at bedside while I was discussing his case with his son. Vital Signs: reviewed and remarkable Differential Diagnosis: ICH, CVA, UTI, FRANCIS, electrolyte abnormality, anemia, worsening Parkinsons, dementia, as well as others were considered MEDICAL DECISION MAKING: This is an 82 yo male who presents to the ER with son due to concern for wor sening hallucinations since a fall over a week ago. VS stable and pt afebrile. Prior imaging negative but inlight of deline, xray/CT imaging was repeated. Labs drawn and sent, IV established, EKG and CXR performed and interpreted at bedside, and patient placed on telemetry. CT did reveal rib fx not previously noted. H/H stable compared to prior. CT head reassuring. Mild leukoctyosis again noted of unclear etiology. Patient is anticoagulated. Hematuria noted. UA not otherwise strongly suggestive of infection. All results discussed at bedside with the son and discussed family's concern for decline in function and worsening hallucinations. Case discussed with hospitalist for additional evaluation. Consultation(s): 1801: Discussed with Dr. Goodwin. ER Treatment Provided: See below 1540: Updated son at bedside. Diagnostics Interpreted By Me: -ECG: a.fib at 79, nml axis, nml intervals, nonspecific ST/T wave changes -Cardiac Monitoring: An order was placed for continuous cardiac monitoring. The monitor shows a rate of 82 with a.fib rhythm. -Laboratory studies: As stated above and show below. -Imaging studies: X-ray Chest: A single view study of the chest was reviewed and was negative for cardiomegaly, focal infiltrate, effusion, pulmonary edema, or wide mediastinum. 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 Extrapyramidal reaction Hypercholesterolemia Hypertension Nephrolithiasis NPH (normal pressure hydrocephalus) KEEGAN (obstructive sleep apnea) Parkinsonism Permanent atrial fibrillation Sarcoidosis Spinal stenosis Type 2 diabetes mellitus Vitamin D deficiency Surgical History H/O total knee replacement History of cataract surgery History of cystoscopy S/P appendectomy S/P colonoscopy S/P sinus surgery S/P [employer] shunt (~06/2014) Family History Father CHF (congestive heart failure) Poliomyelitis Family/Other Colon cancer Other Allergies Family history non-contributory No family history of adverse response to anesthesia No family history of bleeding disorder Social History Smoking Status: Never smoker Second Hand Exposure: No; Do You Dip or Chew Tobacco: No; Tobacco Cessation Education Requested by Patient: No Hx Alcohol Use: Yes Alcohol type: beer Hx Substance Use: No Preferred Language: Belarusian Communication Ability: Effective Communication Ability Comment: difficult r/t confusion Mammal Control Agent Required: No Beliefs That Will Affect Care: None marital status: Current Living Situation: Spouse Current Living Situation Comment: per daughter pt normally lives at home but also [facility] Other Information That Helps Us Care for You: No Feels Safe at Home: Yes Safety Concerns: Feels Safe At This Time Assistive Devices: CPAP, Glasses and Walker Allergies Allergies Allergy/AdvReac Type Severity Reaction Status Date / Time amoxicillin Allergy Intermediate rash Verified 01/10/23 16:44 Penicillins Allergy Unknown AMOXICILLIN Verified 01/10/23 16:44 CAUSES RASH, NO RESP. PROBLEMS PER DR. LORENZO [place] Meds Home Medications Medication Instructions Recorded Confirmed cholecalciferol (vitamin D3) 50 2,000 unit PO QAM 06/27/18 01/10/23 mcg (2,000 unit) capsule (Vitamin D3) acetaminophen 325 mg tablet 650 mg PO Q6H PRN pain/fever 07/19/18 01/10/23 (Tylenol) cyanocobalamin (vitamin B-12) 1,000 mcg PO QAM 03/28/21 01/10/23 1,000 mcg tablet (Vitamin B-12) melatonin 3 mg tablet 3 mg PO QPM 03/28/21 01/10/23 atorvastatin 10 mg tablet 10 mg PO DAILY 01/10/23 01/10/23 memantine 10 mg tablet 10 mg PO BID 01/10/23 01/10/23 pantoprazole 40 mg tablet,delayed 40 mg PO DAILY 01/10/23 01/10/23 release potassium citrate 10 mEq (1,080 20 meq PO BID 01/10/23 01/10/23 mg) tablet,extended release prednisone 2.5 mg tablet 2.5 mg PO DAILY 01/10/23 01/10/23 sertraline 100 mg tablet 100 mg PO DAILY 01/10/23 01/10/23 sertraline 25 mg tablet 25 mg PO DAILY 01/10/23 01/10/23 zinc acetate 50 mg (zinc) capsule 50 mg PO DAILY 01/10/23 01/10/23 Previous Rx's Medication Instructions Recorded carbidopa 25 mg-levodopa 100 mg 1 tab PO TID #270 tabs 07/29/22 tablet (Sinemet) propranolol 20 mg tablet 20 mg PO DAILY #90 tabs 08/20/22 apixaban 5 mg tablet (Eliquis) 5 mg PO BID #180 tabs 10/08/22 buspirone 5 mg tablet 5 mg PO BID #60 tabs 11/06/22 finasteride 5 mg tablet 5 mg PO QAM #90 tabs 12/22/22 oxycodone 5 mg tablet 5 mg PO Q6H PRN pain #15 tabs 01/03/23 Results & Data (ED) Vital Signs Vital Signs - 24 hr 01/10/23 13:08 01/10/23 13:13 01/10/23 13:35 Temperature 36.2 C L Temperature Source Skin Pulse Rate 85 83 84 Pulse Rate [Left Apical] Respiratory Rate 20 18 Respiratory Effort / Characteristics Non-Labored Spontaneous Respiratory Depth Normal Blood Pressure 127/72 Blood Pressure [Right Arm] Blood Pressure Mean 90 Blood Pressure Mean [Right Arm] Pulse Oximetry 96 96 Oxygen Delivery Method Room Air Room Air Sepsis Recent Fever Within 48 Hours No Sepsis New/Unexplained Change in Mental Status Yes Sepsis Action Taken by Nursing No Action Required 01/10/23 15:22 01/10/23 16:17 Temperature Temperature Source Pulse Rate Pulse Rate [Left Apical] 85 84 Respiratory Rate 19 22 Respiratory Effort / Characteristics Non-Labored Respiratory Depth Normal Blood Pressure Blood Pressure [Right Arm] 137/76 118/86 Blood Pressure Mean Blood Pressure Mean [Right Arm] 96 96 Pulse Oximetry 96 96 Oxygen Delivery Method Room Air Room Air Sepsis Recent Fever Within 48 Hours Sepsis New/Unexplained Change in Mental Status Sepsis Action Taken by Nursing Laboratory Data 01/10/23 13:25 01/10/23 13:25 Lab Results 01/10/23 01/10/23 01/10/23 Range/Units 13:25 13:25 13:25 WBC 14.80 H (4.8-10.8) K/ul RBC 4.83 (4.70-6.10) M/uL Hgb 15.4 (14.0-18.0) g/dl Hct 47.0 (42.0-52.0) % MCV 97.3 (80.0-100.0) fL MCH 31.9 (25.0-34.0) pg MCHC 32.8 (32.0-36.0) g/dL RDW Std Deviation 49.5 H (36.4-46.3) fL RDW Coeff of Faith 13.8 (11.5-14.5) % Plt Count 220 (130-400) K/uL MPV 10.7 (9.4-12.4) fL Immature Gran % (Auto) 0.7 % Neut % (Auto) 85.8 % Lymph % (Auto) 8.3 % [place] % (Auto) 4.3 % Eos % (Auto) 0.5 % Baso % (Auto) 0.4 % Neut # (Auto) 12.71 H (1.40-6.50) K/uL Lymph # (Auto) 1.23 (1.2-3.4) K/uL [place] # (Auto) 0.63 H (0.11-0.59) K/uL Eos # (Auto) 0.07 (0-0.50) K/uL Baso # (Auto) 0.06 (0-0.2) K/uL Immature Gran # (Auto) 0.10 (0.01-0.20) K/uL PT 12.8 H (9.0-12.0) Seconds INR 1.2 H (0.9-1.1) APTT 31.1 H (21.0-31.0) Seconds PTT Ratio 1.1 Sodium 139 (136-145) mmol/L Potassium 4.3 (3.5-5.1) mmol/L Chloride 107 (98-107) mmol/L Carbon Dioxide 25 (21-32) mmol/L Anion Gap 7 (3-11) BUN 25 H (6-23) mg/dl Creatinine 1.26 (0.6-1.4) mg/dl Est Cr Clr Drug Dosing 44.0 ml/min Est GFR ( Amer) 61.2 ml/min Est GFR (Non-Af Amer) 52.8 ml/min BUN/Creatinine Ratio 19.8 (10-20) Glucose 134 H (70-99(Fasting)) mg/dl Lactate (0.4-2.0) mmol/L Calcium 9.4 (8.6-10.3) mg/dl Magnesium 2.0 (1.7-2.4) mg/dl Total Bilirubin 1.1 H (0.2-1.0) mg/dl AST 22 (13-39) U/L ALT 5 L (7-52) U/L Alkaline Phosphatase 88 (34-104) U/L Ammonia (18-72) umol/L Troponin I High Sens 7.0 (0-20) pg/ml Total Protein 7.8 (6.0-8.3) gm/dl Albumin 3.8 (3.4-5.0) gm/dl Globulin 4.0 (2.5-4.0) gm/dl Albumin/Globulin Ratio 1.0 (0.9-2) Lipase 26 (11-82) U/L TSH (0.300-4.500) uIu/ml Urine Color Urine Appearance (Clear) Urine pH (4.5-7.5) Ur Specific Mott (1.000-1.030) Urine Protein (Negative) Urine Glucose (UA) (Negative) Urine Ketones (Negative) Urine Blood (Negative) Urine Nitrite (Negative) Urine Bilirubin (Negative) Urine Urobilinogen (Negative) Ur Leukocyte Esterase (Negative) Urine WBC (Auto) (0-5) /hpf Urine RBC (Auto) (0-4) /hpf U Hyaline Cast (Auto) (0-5) /lpf U Epithel Cells (Auto) (0-5) /lpf Urine Bacteria (Auto) (Negative) Ur Renal Epithelial Cell 01/10/23 01/10/23 01/10/23 Range/Units 13:25 13:25 14:27 WBC (4.8-10.8) K/ul RBC (4.70-6.10) M/uL Hgb (14.0-18.0) g/dl Hct (42.0-52.0) % MCV (80.0-100.0) fL MCH (25.0-34.0) pg MCHC (32.0-36.0) g/dL RDW Std Deviation (36.4-46.3) fL RDW Coeff of Faith (11.5-14.5) % Plt Count (130-400) K/uL MPV (9.4-12.4) fL Immature Gran % (Auto) % Neut % (Auto) % Lymph % (Auto) % [place] % (Auto) % Eos % (Auto) % Baso % (Auto) % Neut # (Auto) (1.40-6.50) K/uL Lymph # (Auto) (1.2-3.4) K/uL [place] # (Auto) (0.11-0.59) K/uL Eos # (Auto) (0-0.50) K/uL Baso # (Auto) (0-0.2) K/uL Immature Gran # (Auto) (0.01-0.20) K/uL PT (9.0-12.0) Seconds INR (0.9-1.1) APTT (21.0-31.0) Seconds PTT Ratio Sodium (136-145) mmol/L Potassium (3.5-5.1) mmol/L Chloride (98-107) mmol/L Carbon Dioxide (21-32) mmol/L Anion Gap (3-11) BUN (6-23) mg/dl Creatinine (0.6-1.4) mg/dl Est Cr Clr Drug Dosing ml/min Est GFR ( Amer) ml/min Est GFR (Non-Af Amer) ml/min BUN/Creatinine Ratio (10-20) Glucose (70-99(Fasting)) mg/dl Lactate 2.5 H* (0.4-2.0) mmol/L Calcium (8.6-10.3) mg/dl Magnesium (1.7-2.4) mg/dl Total Bilirubin (0.2-1.0) mg/dl AST (13-39) U/L ALT (7-52) U/L Alkaline Phosphatase (34-104) U/L Ammonia 29.0 (18-72) umol/L Troponin I High Sens (0-20) pg/ml Total Protein (6.0-8.3) gm/dl Albumin (3.4-5.0) gm/dl Globulin (2.5-4.0) gm/dl Albumin/Globulin Ratio (0.9-2) Lipase (11-82) U/L TSH 2.177 (0.300-4.500) uIu/ml Urine Color Urine Appearance (Clear) Urine pH (4.5-7.5) Ur Specific Mott (1.000-1.030) Urine Protein (Negative) Urine Glucose (UA) (Negative) Urine Ketones (Negative) Urine Blood (Negative) Urine Nitrite (Negative) Urine Bilirubin (Negative) Urine Urobilinogen (Negative) Ur Leukocyte Esterase (Negative) Urine WBC (Auto) (0-5) /hpf Urine RBC (Auto) (0-4) /hpf U Hyaline Cast (Auto) (0-5) /lpf U Epithel Cells (Auto) (0-5) /lpf Urine Bacteria (Auto) (Negative) Ur Renal Epithelial Cell 01/10/23 01/10/23 Range/Units 15:32 16:23 WBC (4.8-10.8) K/ul RBC (4.70-6.10) M/uL Hgb (14.0-18.0) g/dl Hct (42.0-52.0) % MCV (80.0-100.0) fL MCH (25.0-34.0) pg MCHC (32.0-36.0) g/dL RDW Std Deviation (36.4-46.3) fL RDW Coeff of Faith (11.5-14.5) % Plt Count (130-400) K/uL MPV (9.4-12.4) fL Immature Gran % (Auto) % Neut % (Auto) % Lymph % (Auto) % [place] % (Auto) % Eos % (Auto) % Baso % (Auto) % Neut # (Auto) (1.40-6.50) K/uL Lymph # (Auto) (1.2-3.4) K/uL [place] # (Auto) (0.11-0.59) K/uL Eos # (Auto) (0-0.50) K/uL Baso # (Auto) (0-0.2) K/uL Immature Gran # (Auto) (0.01-0.20) K/uL PT (9.0-12.0) Seconds INR (0.9-1.1) APTT (21.0-31.0) Seconds PTT Ratio Sodium (136-145) mmol/L Potassium (3.5-5.1) mmol/L Chloride (98-107) mmol/L Carbon Dioxide (21-32) mmol/L Anion Gap (3-11) BUN (6-23) mg/dl Creatinine (0.6-1.4) mg/dl Est Cr Clr Drug Dosing ml/min Est GFR ( Amer) ml/min Est GFR (Non-Af Amer) ml/min BUN/Creatinine Ratio (10-20) Glucose (70-99(Fasting)) mg/dl Lactate 1.0 (0.4-2.0) mmol/L Calcium (8.6-10.3) mg/dl Magnesium (1.7-2.4) mg/dl Total Bilirubin (0.2-1.0) mg/dl AST (13-39) U/L ALT (7-52) U/L Alkaline Phosphatase (34-104) U/L Ammonia (18-72) umol/L Troponin I High Sens (0-20) pg/ml Total Protein (6.0-8.3) gm/dl Albumin (3.4-5.0) gm/dl Globulin (2.5-4.0) gm/dl Albumin/Globulin Ratio (0.9-2) Lipase (11-82) U/L TSH (0.300-4.500) uIu/ml Urine Color Yellow Urine Appearance Cloudy A (Clear) Urine pH 7.5 (4.5-7.5) Ur Specific Mott 1.020 (1.000-1.030) Urine Protein Trace H (Negative) Urine Glucose (UA) Negative (Negative) Urine Ketones Negative (Negative) Urine Blood 3+ H (Negative) Urine Nitrite Negative (Negative) Urine Bilirubin Negative (Negative) Urine Urobilinogen Negative (Negative) Ur Leukocyte Esterase Trace H (Negative) Urine WBC (Auto) 10-30 H (0-5) /hpf Urine RBC (Auto) >30 H (0-4) /hpf U Hyaline Cast (Auto) 1-5 (0-5) /lpf U Epithel Cells (Auto) 10-20 H (0-5) /lpf Urine Bacteria (Auto) Negative (Negative) Ur Renal Epithelial Cell Not Reportable Administered Medications Buspirone HCl (Buspirone 5 Mg Tab) 5 mg PO BID ANTHONY Stop: 02/09/23 22:10 Last Admin: 01/11/23 09:43 Dose: 5 mg Documented By: Admin: 01/10/23 22:42 Dose: 5 mg Documented By: MICHELLE Carbidopa/Levodopa (Carbidopa/Levodopa 25/100mg Tab) 1 tab PO TID ANTHONY Stop: 02/09/23 22:10 Last Admin: 01/11/23 13:36 Dose: 1 tab Documented By: Admin: 01/11/23 09:43 Dose: 1 tab Documented By: Admin: 01/10/23 22:43 Dose: 1 tab Documented By: MICHELLE Finasteride (Finasteride 5 Mg Tab) 5 mg PO QAM ANTHONY Stop: 02/10/23 08:59 Last Admin: 01/11/23 09:44 Dose: 5 mg Documented By: MITCHEL Melatonin (Melatonin 3 Mg Tab) 3 mg PO QPM ANTHONY Stop: 02/09/23 22:10 Last Admin: 01/10/23 22:43 Dose: 3 mg Documented By: MICHELLE Pantoprazole Sodium (Pantoprazole 40 Mg Tab) 40 mg PO DAILY ANTHONY Stop: 02/10/23 08:59 Last Admin: 01/11/23 09:44 Dose: 40 mg Documented By: MITCHEL Potassium Citrate (Potassium Citrate 10 Meq Tab) 20 meq PO BID ANTHONY Stop: 02/09/23 22:10 Last Admin: 01/11/23 09:44 Dose: 20 meq Documented By: Admin: 01/10/23 22:43 Dose: 20 meq Documented By: MICHELLE Prednisone (Prednisone 2.5 Mg Tab) 2.5 mg PO DAILY ANTHONY Stop: 02/10/23 08:59 Last Admin: 01/11/23 09:44 Dose: 2.5 mg Documented By: MITCHEL Sertraline HCl (Sertraline Hcl 100 Mg Tablet) 100 mg PO DAILY ANTHONY Stop: 02/10/23 08:59 Last Admin: 01/11/23 09:45 Dose: 100 mg Documented By: MITCHEL Sertraline HCl (Sertraline Hcl 50 Mg Tablet) 25 mg PO DAILY ANTHONY Stop: 02/10/23 08:59 Last Admin: 01/11/23 09:44 Dose: 25 mg Documented By: MITCHEL Discontinued Medications Apixaban (Apixaban 5 Mg Tablet) 5 mg PO BID ANTHONY Stop: 02/09/23 22:10 Last Admin: 01/11/23 09:43 Dose: 5 mg Documented By: Admin: 01/10/23 22:42 Dose: 5 mg Documented By: MICHLELE Sodium Chloride (Nss 1000ml) 1,000 mls @ 125 mls/hr IV .Q8H ANTHONY Stop: 02/09/23 13:44 Last Admin: 01/10/23 22:29 Dose: Not Given Documented By: Infusion: 01/10/23 22:29 Dose: 0 mls/hr Documented By: Admin: 01/10/23 16:16 Dose: 125 mls/hr Documented By: MARCELO Ioversol (Optiray 320 100ml) 90 ml IV ONCE ONE Stop: 01/10/23 16:16 Last Admin: 01/10/23 16:16 Dose: 90 ml Documented By: KERRY Memantine (Memantine Hcl 10 Mg Tab) 10 mg PO BID ANTHONY Stop: 02/09/23 22:10 Last Admin: 01/10/23 22:29 Dose: Not Given Documented By: MICHELLE Imaging Data Radiologist's Impression: Chest X-Ray 01/10/23 13:13 XR chest 1V not portable HISTORY: Weakness COMPARISON: Chest 03/28/2021. FINDINGS: There are low lung volumes. The cardiac silhouette remains mildly enlarged. No new focal lung consolidations to suggest a pneumonia. No evidence for pulmonary edema. Mild chronic interstitial thickening, unchanged. Right- sided shunt catheter appears intact. IMPRESSION: No significant change compared to the prior study. No acute process. ACT 112: Negative or not required by law. Electronically signed by: Amor Galaviz M.D. 01/10/2023 2:[address] 01/10/23 13:[address] DOSE: 547.75 mGy.cm HISTORY: hallucinations TECHNIQUE: Multiaxial CT images of the head were performed without the use of i ntravenous contrast. Automated exposure control was utilized for this study. A dose lowering technique was utilized adhering to the principles of ALARA. Comparison: None. Findings: Mild mucosal thickening within the residual ethmoid air cells. The mastoid air cells are clear. No fractures within the calvarium or skull base. There is a right parietal ventriculostomy catheter again noted which crosses the midline and terminates at the left caudate head. This remains unchanged. Prior bilateral lens replacement. 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 This is likely chronic. There is no mass, hematoma, midline shift, acute infarct. The lateral ventricles remain slitlike. Impression: No significant change compared to the prior study. No acute intracranial abnormality. ACT 112: Negative or not required by law. Electronically signed by: Amor Galaviz M.D. 01/10/2023 3:25 PM Abdomen/Pelvis CT 01/10/23 15:[address] WITH IV CONTRAST CT DOSE: 1253.92 mGy.cm HISTORY: prior trauma, altered mental status. Left rib pain. TECHNIQUE: Multiaxial CT images of the abdomen and pelvis were performed following the use of intravenous contrast. A dose lowering technique was utilized adhering to the principles of ALARA. COMPARISON STUDY: Abdomen and pelvis CT 01/03/2023. FINDINGS: Chronic interstitial changes again noted at the lung bases. No pneumoperitoneum. No pneumatosis. Acute nondisplaced fractures within the left anterior eighth and ninth costochondral junctions. Soft tissue contusions within the left anterolateral abdominal wall. There is a right-sided shunt catheter which terminates in the left lower quadrant. No hepatic or splenic masses. The gallbladder, pancreas, and adrenal glands unremarkable. There are few small hypodensities within the kidneys likely representing cysts. Left-sided nephrolithiasis again noted. This includes a 1.2 cm stone within the left renal pelvis. This remains unchanged. No ureteral stones. No hydronephrosis. The main portal vein is patent. No retroperitoneal hematoma lymphadenopathy. Calcified plaque within the normal caliber abdominal aorta. No pelvic lymphadenopathy or pelvic free fluid. Normal bladder. Colonic diverticulosis. No evidence for acute diverticulitis. No bowel wall thickening or obstruction. IMPRESSION: 1. Acute nondisplaced fractures within the left anterior eighth and ninth costochondral junctions. 2. Soft tissue contusions within the left anterolateral abdominal wall. 3. Additional findings as described above. ACT 112: Negative or not required by law. Electronically signed by: Amor Galaviz M.D. 01/10/2023 4:54 PM Discharge Plan Visit Data Chief Complaint: Altered Mental Status Stated Complaint: FALLING OFTEN, ALTERED MENTAL STATUS ED Provider: Rosibel Bruno Discharge Problem: Hallucinations, Closed rib fracture, Contusion, Parkinson disease, Leukocytosis Patient Disposition: Admitted As Inpatient Discharge Instructions Interventions: ED Discharge Assessment Last Done: 01/10/23 21:50
[2023-01-10 14:17] LABS: Albumin Level 3.8 gm/dl (3.4-5.0); BUN Creatinine Ratio 19.8 (10-20); Bilirubin,Total 1.1 mg/dl (0.2-1.0); Calcium 9.4 mg/dl (8.6-10.3); Est GFR (African American) 61.2 ml/min; Est GFR (Non-African American) 52.8 ml/min; Potassium 4.3 mmol/L (3.5-5.1); Total Protein 7.8 gm/dl (6.0-8.3)
--- NOTE | 2023-01-10 14:17 | XRay Report ---
XR chest 1V not portable HISTORY: Weakness COMPARISON: Chest 03/28/2021. FINDINGS: There are low lung volumes. The cardiac silhouette remains mildly enlarged. No new focal beny ng consolidations to suggest a pneumonia. No evidence for pulmonary edema. Mild chronic interstitial thickening, unchanged. Right-sided shunt catheter appears intact. IMPRESSION: No significant change compared to the prior study. No acute process. ACT 112: Negative or not required by law. Electronically signed by: Amor aGlaviz M.D. 01/10/2023 2:16 PM
[2023-01-10 14:24] LABS: INR 1.2 (0.9-1.1); Partial Thromboplastin Ratio 1.1; Partial Thromboplastin Time 31.1 Seconds (21.0-31.0); Prothrombin Time 12.8 Seconds (9.0-12.0)
--- NOTE | 2023-01-10 15:28 | CT Scan Report ---
HEAD CT NONCONTRAST CT DOSE: 547.75 mGy.cm HISTORY: hallucinations TECHNIQUE: Multiaxial CT images of the head were performed without the use of intravenous contrast. A utomated exposure control was utilized for this study. A dose lowering technique was utilized adheri ng to the principles of ALARA. Comparison: None. Findings: Mild mucosal thickening within the residual ethmoid air cells. The mastoid air cells are cl ear. No fractures within the calvarium or skull base. There is a right parietal ventriculostomy lor ter again noted which crosses the midline and terminates at the left caudate head. This remains uncha nged. Prior bilateral lens replacement. 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 This is likely chronic. There is no mass, hematoma, midline shift, acute infarct. The lateral ventricles remain slitlike. Impression: No significant change compared to the prior study. No acute intracranial abnormality. ACT 112: Negative or not required by law. Electronically signed by: Amor Galaviz M.D. 01/10/2023 3:25 PM
[2023-01-10] MEDS ORDERED: OPTIRAY 320 100ml IV ONE (16:15)
[2023-01-10] MEDS: SODIUM CHLORIDE 0.9% 1000ML 1,000 ML IV SCH ×2 (16:16→22:29)
[2023-01-10 16:41] LABS: Appearance Urine Cloudy (Clear); Bacteria Urine Automated Negative (Negative); Bilirubin Urine Negative (Negative); Blood Urine 3+ (Negative); Color Urine Yellow; Glucose Urine UA Negative (Negative); Ketones Urine Negative (Negative); Leukocyte Esterase Urine Trace (Negative); Nitrite Urine Negative (Negative); RBC Urine Automated >30 /hpf (0-4); Urobilinogen Urine Negative (Negative); pH Urine 7.5 (4.5-7.5)
[2023-01-10 16:42] LABS: Protein Urine Trace (Negative)
--- NOTE | 2023-01-10 16:57 | CT Scan Report ---
ABDOMEN AND PELVIS CT WITH IV CONTRAST CT DOSE: 1253.92 mGy.cm HISTORY: prior trauma, altered mental status. Left rib pain. TECHNIQUE: Multiaxial CT images of the abdomen and pelvis were performed following the use of intrave nous contrast. A dose lowering technique was utilized adhering to the principles of ALARA. COMPARISON STUDY: Abdomen and pelvis CT 01/03/2023. FINDINGS: Chronic interstitial changes again noted at the lung bases. No pneumoperitoneum. No pneumat osis. Acute nondisplaced fractures within the left anterior eighth and ninth costochondral junctions. Soft tissue contusions within the left anterolateral abdominal wall. There is a right-sided shunt ca theter which terminates in the left lower quadrant. No hepatic or splenic masses. The gallbladder, pa ncreas, and adrenal glands unremarkable. There are few small hypodensities within the kidneys likely representing cysts. Left-sided nephrolithiasis again noted. This includes a 1.2 cm stone within the l eft renal pelvis. This remains unchanged. No ureteral stones. No hydronephrosis. The main portal vein is patent. No retroperitoneal hematoma lymphadenopathy. Calcified plaque within the normal caliber a bdominal aorta. No pelvic lymphadenopathy or pelvic free fluid. Normal bladder. Colonic diverticulosi s. No evidence for acute diverticulitis. No bowel wall thickening or obstruction. IMPRESSION: 1. Acute nondisplaced fractures within the left anterior eighth and ninth costochondral junctions. 2. Soft tissue contusions within the left anterolateral abdominal wall. 3. Additional findings as described above. ACT 112: Negative or not required by law. Electronically signed by: Amor Galaviz M.D. 01/10/2023 4:54 PM
--- NOTE | 2023-01-10 18:22 | History & Physical Report ---
Date of Service January 10, 2023 Assessment & Plan (1) Hallucinations: Plan: Suspect progression of his Parkinson's Consider Nuplazid if frequent, for now will utilize quetiapine as needed just for use at night. Avoid other antipsychotics and benzodiazepines. Given slow progression of symptoms over many months family wish to consider placement at this time. Stop memantine and opiates (2) Recurrent falls: Plan: Stop atorvastatin as unlikely any beenfit at this time Consider stopping Eliquis - discussed with son as below PT/OT consideration of placement (3) Skin trauma: Plan: Routine dressing for now. Consult wound care nurse. 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 Plan VTE Prohyalxis - Eliquis Diet - regular Disposition - observation to med/surg Admission and Anticipated Discharge Date Admission Date: January 10, 2023 History of Present Illness Chief Complaint: Hallucinations, recurrent falls Primary Care Provider: Corby Vega MD Elvis Reyes is an 82 year old male with Parkinson's disease who presents to the ER due to recurrent falls and hallucinations. Unable to get any significant history from the patient although he is aware he is in hospital he is unable to tell me why he is here. He denies any pain at this time or any concerns. His son at bedside provides the history. Progressive decline with worsening falls over multiple months. Appears to be increased decline the last 10 days after fall on January 03. Significant worsening visual hallucinations, difficulty with ambulation and decreased appetite. No dysphagia, nausea, vomiting, change in bowels. No headache, shortness of breath or change in urine. His son feels he is no longer safe to be at home and requesting placement. Allergies Allergy/AdvReac Type Severity Reaction Status Date / Time amoxicillin Allergy Intermediate rash Verified 01/10/23 16:44 Penicillins Allergy Unknown AMOXICILLIN Verified 01/10/23 16:44 CAUSES RASH, NO RESP. PROBLEMS PER DR. LORENZO Home Medications Medication Instructions Recorded Confirmed Type cholecalciferol (vitamin D3) 50 2,000 unit PO QAM 06/27/18 01/10/23 History mcg (2,000 unit) capsule (Vitamin D3) acetaminophen 325 mg tablet 650 mg PO Q6H PRN pain/fever 07/19/18 01/10/23 History (Tylenol) cyanocobalamin (vitamin B-12) 1,000 mcg PO QAM 03/28/21 01/10/23 History 1,000 mcg tablet (Vitamin B-12) melatonin 3 mg tablet 3 mg PO QPM 03/28/21 01/10/23 History carbidopa 25 mg-levodopa 100 mg 1 tab PO TID #270 tabs 07/29/22 01/10/23 Rx tablet (Sinemet) propranolol 20 mg tablet 20 mg PO DAILY #90 tabs 08/20/22 01/10/23 Rx apixaban 5 mg tablet (Eliquis) 5 mg PO BID #180 tabs 10/08/22 01/10/23 Rx buspirone 5 mg tablet 5 mg PO BID #60 tabs 11/06/22 01/10/23 Rx finasteride 5 mg tablet 5 mg PO QAM #90 tabs 12/22/22 01/10/23 Rx oxycodone 5 mg tablet 5 mg PO Q6H PRN pain #15 tabs 01/03/23 01/10/23 Rx atorvastatin 10 mg tablet 10 mg PO DAILY 01/10/23 01/10/23 History memantine 10 mg tablet 10 mg PO BID 01/10/23 01/10/23 History pantoprazole 40 mg tablet,delayed 40 mg PO DAILY 01/10/23 01/10/23 History release potassium citrate 10 mEq (1,080 20 meq PO BID 01/10/23 01/10/23 History mg) tablet,extended release prednisone 2.5 mg tablet 2.5 mg PO DAILY 01/10/23 01/10/23 History sertraline 100 mg tablet 100 mg PO DAILY 01/10/23 01/10/23 History sertraline 25 mg tablet 25 mg PO DAILY 01/10/23 01/10/23 History zinc acetate 50 mg (zinc) capsule 50 mg PO DAILY 01/10/23 01/10/23 History Past Med/Surg History Medical History Anxiety BPH (benign prostatic hyperplasia) 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 Extrapyramidal reaction Hypercholesterolemia Hypertension Nephrolithiasis NPH (normal pressure hydrocephalus) KEEGAN (obstructive sleep apnea) Parkinsonism Permanent atrial fibrillation Sarcoidosis Spinal stenosis Type 2 diabetes mellitus Vitamin D deficiency Surgical History H/O total knee replacement History of cataract surgery History of cystoscopy S/P appendectomy S/P colonoscopy S/P sinus surgery S/P CRAB BUTCHER shunt (~06/2014) Family History Father CHF (congestive heart failure) Poliomyelitis Family/Other Colon cancer Other Allergies Family history non-contributory No family history of adverse response to anesthesia No family history of bleeding disorder Social History Smoking Status: Never smoker Second Hand Exposure: No; Do You Dip or Chew Tobacco: No; Tobacco Cessation Education Requested by Patient: No Hx Alcohol Use: Yes Alcohol type: beer Hx Substance Use: No Preferred Language: Haitian Communication Ability: Effective Communication Ability Comment: difficult r/t confusion Coal Trammer Required: No Beliefs That Will Affect Care: None marital status: Current Living Situation: Spouse Current Living Situation Comment: per daughter pt normally lives at home but also [facility] Other Information That Helps Us Care for You: No Feels Safe at Home: Yes Safety Concerns: Feels Safe At This Time Assistive Devices: Glasses and Walker Review of Systems Review of Systems: All systems reviewed & are unremarkable except as noted in HPI & below Physical Exam Constitutional: well developed; + not well nourished and no acute distress Eyes: PERRL, conjunctivae normal, anicteric sclerae ENMT: external ear and nose normal, oropharynx normal Neck: trachea midline, no thyromegaly Respiratory: normal respiratory effort, lungs clear to auscultation Cardiovascular: RRR, no murmur, no edema Gastrointestinal (Abdomen): normal bowel sounds, soft, nontender, no hepatosplenomegaly Inspection/Auscultation: + abdomen abnormal to inspection (left abdominal ecchymosis) Musculoskeletal: no unilateral weakness, significant deformity of right upper extremity (son reports this is from a prior fall with humeral fracture). Skin: Multiple areas of trauma and skin lacerations without surrounding cellulitis on left abdomen and bilateral arms Neurologic: moves all extremities and awake; no focal motor deficits and not confused Speech / Cognition: normal speech Motor/Sensory: + tremor (resting R > L); no pronator drift Cranial Nerves: PERRL, EOM intact bilaterally, normal facial strength, tongue midline, able to rotate head bilaterally, able to elevate shoulders bilaterally, no nystagmus and symmetric palate elevation Psychiatric: Orientation: alert, oriented to person (son in room) and oriented to place (to hospital but doesn't know where); + not oriented to time (thinks it is 2023) Eye Contact: + fair eye contact Results & Data Results & Data Vital Signs (Past 12 Hours) Vital Signs Temp Pulse Pulse Resp BP BP Pulse Ox 01/10/23 16:17 84 22 118/86 96 01/10/23 15:22 85 19 137/76 96 01/10/23 13:35 84 01/10/23 13:13 83 18 96 01/10/23 13:08 36.2 C L 85 20 127/72 96 O2 Del Method 01/10/23 16:17 Room Air 01/10/23 15:22 Room Air 01/10/23 13:35 01/10/23 13:13 Room Air 01/10/23 13:08 Room Air Laboratory Results Abnormal lab results 01/10/23 01/10/23 01/10/23 Range/Units 13:25 13:25 13:25 WBC 14.80 H (4.8-10.8) K/ul RDW Std Deviation 49.5 H (36.4-46.3) fL Neut # (Auto) 12.71 H (1.40-6.50) K/uL Granite # (Auto) 0.63 H (0.11-0.59) K/uL PT 12.8 H (9.0-12.0) Seconds INR 1.2 H (0.9-1.1) APTT 31.1 H (21.0-31.0) Seconds BUN 25 H (6-23) mg/dl Glucose 134 H (70-99(Fasting)) mg/dl Lactate (0.4-2.0) mmol/L Total Bilirubin 1.1 H (0.2-1.0) mg/dl ALT 5 L (7-52) U/L Urine Appearance (Clear) Urine Protein (Negative) Urine Blood (Negative) Ur Leukocyte Esterase (Negative) Urine WBC (Auto) (0-5) /hpf Urine RBC (Auto) (0-4) /hpf U Epithel Cells (Auto) (0-5) /lpf 01/10/23 01/10/23 Range/Units 13:25 16:23 WBC (4.8-10.8) K/ul RDW Std Deviation (36.4-46.3) fL Neut # (Auto) (1.40-6.50) K/uL Granite # (Auto) (0.11-0.59) K/uL PT (9.0-12.0) Seconds INR (0.9-1.1) APTT (21.0-31.0) Seconds BUN (6-23) mg/dl Glucose (70-99(Fasting)) mg/dl Lactate 2.5 H* (0.4-2.0) mmol/L Total Bilirubin (0.2-1.0) mg/dl ALT (7-52) U/L Urine Appearance Cloudy A (Clear) Urine Protein Trace H (Negative) Urine Blood 3+ H (Negative) Ur Leukocyte Esterase Trace H (Negative) Urine WBC (Auto) 10-30 H (0-5) /hpf Urine RBC (Auto) >30 H (0-4) /hpf U Epithel Cells (Auto) 10-20 H (0-5) /lpf Diagnostic Findings HEAD CT NONCONTRAST CT DOSE: 547.75 mGy.cm HISTORY: hallucinations TECHNIQUE: Multiaxial CT images of the head were performed without the use of intravenous contrast. Automated exposure control was utilized for this study. A dose lowering technique was utilized adhering to the principles of ALARA. Comparison: None. Findings: Mild mucosal thickening within the residual ethmoid air cells. The mastoid air cells are clear. No fractures within the calvarium or skull base. There is a right parietal ventriculostomy catheter again noted which crosses the midline and terminates at the left caudate head. This remains unchanged. Prior bilateral lens replacement. 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 This is likely chronic. There is no mass, hematoma, midline shift, acute infarct. The lateral ventricles remain slitlike. Impression: No significant change compared to the prior study. No acute intracranial abnormality. XR chest 1V not portable HISTORY: Weakness COMPARISON: Chest 03/28/2021. FINDINGS: There are low lung volumes. The cardiac silhouette remains mildly enlarged. No new focal lung consolidations to suggest a pneumonia. No evidence for pulmonary edema. Mild chronic interstitial thickening, unchanged. Right- sided shunt catheter appears intact. IMPRESSION: No significant change compared to the prior study. No acute process. ABDOMEN AND PELVIS CT WITH IV CONTRAST CT DOSE: 1253.92 mGy.cm HISTORY: prior trauma, altered mental status. Left rib pain. TECHNIQUE: Multiaxial CT images of the abdomen and pelvis were performed following the use of intravenous contrast. A dose lowering technique was utilized adhering to the principles of ALARA. COMPARISON STUDY: Abdomen and pelvis CT 01/03/2023. FINDINGS: Chronic interstitial changes again noted at the lung bases. No pneumoperitoneum. No pneumatosis. Acute nondisplaced fractures within the left a nterior eighth and ninth costochondral junctions. Soft tissue contusions within the left anterolateral abdominal wall. There is a right-sided shunt catheter which terminates in the left lower quadrant. No hepatic or splenic masses. The gallbladder, pancreas, and adrenal glands unremarkable. There are few small hypodensities within the kidneys likely representing cysts. Left-sided nephrolithiasis again noted. This includes a 1.2 cm stone within the left renal pelvis. This remains unchanged. No ureteral stones. No hydronephrosis. The main portal vein is patent. No retroperitoneal hematoma lymphadenopathy. Calcified plaque within the normal caliber abdominal aorta. No pelvic lymphadenopathy or pelvic free fluid. Normal bladder. Colonic diverticulosis. No evidence for acute diverticulitis. No bowel wall thickening or obstruction. IMPRESSION: 1. Acute nondisplaced fractures within the left anterior eighth and ninth costochondral junctions. 2. Soft tissue contusions within the left anterolateral abdominal wall. 3. Additional findings as described above. Medications Administered ER Medications Given: NSS @ 125ml/hr ECG Rate (beats per minute): 79 Rhythm: atrial fibrillation Findings: + nonspecific-ST abn (Anterior) Comparison ECG Date: from (January 09, 2023) Change: no significant change Code Status & VTE Plan Code Status Full VTE Prophylaxis Plan VTE Prophylaxis will be ordered: Yes PG Care Time/CCT Total # of Minutes Spent Total Time Spent with Patient: Total time spent is greater than 50% in coordination of care (as documented) at patient's floor/unit and/or counseling patient: Coding Level of Care Code 79091 INT INP/OBS CARE 2/55MIN Diagnoses Hallucinations R44.3 Recurrent falls R29.6 Skin trauma T14.8XXA Rib fractures S22.49XA KEEGAN (obstructive sleep apnea) G47.33 Sarcoidosis D86.9 NPH (normal pressure hydrocephalus) G91.2 BPH (benign prostatic hyperplasia) N40.0 Lower urinary tract symptom presence: symptoms absent Parkinsonism G20 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
[2023-01-10] MEDS ORDERED: ACETAMINOPHEN 325 MG TAB PO PRN (22:11)
[2023-01-10] MEDS ORDERED: ONDANSETRON INJ 2 MG/ML 2 ML VIAL IV PRN (22:11)
[2023-01-10] MEDS ORDERED: POLYETHYLENE (MIRALAX) 17 GM PACK PO PRN (22:11)
[2023-01-10] MEDS ORDERED: MEMANTINE HCL 10 MG TAB PO SCH (22:11)
[2023-01-10] MEDS ORDERED: QUEtiapine FUMARATE 25 MG TABLET PO PRN (22:21)
[2023-01-10] MEDS: busPIRone 5 MG TAB PO SCH (22:42)
[2023-01-10] MEDS: APIXABAN 5 MG TABLET PO SCH (22:42)
[2023-01-10] MEDS: MELATONIN 3 MG TAB PO SCH (22:43)
[2023-01-10] MEDS: POTASSIUM CITRATE 10 MEQ TAB PO SCH (22:43)
[2023-01-10] MEDS: CARBIDOPA/LEVODOPA 25/100MG TAB PO SCH (22:43)
[2023-01-11 07:30] LABS: Basophils # (auto) 0.07 K/uL (0-0.2); Basophils % (auto) 0.5 %; Eosinophils # (auto) 0.14 K/uL (0-0.50); Eosinophils % (auto) 0.9 %; Hematocrit (blood only) 43.9 % (42.0-52.0); Hemoglobin 14.9 g/dl (14.0-18.0); Immature Granulocytes # (auto) 0.12 K/uL (0.01-0.20); Immature Granulocytes % (auto) 0.8 %; Lymphocytes # (auto) 1.88 K/uL (1.2-3.4); Lymphocytes % (auto) 12.1 %; Mean Corpuscular Hemoglobin 31.9 pg (25.0-34.0); Mean Corpuscular Hgb Conc 33.9 g/dL (32.0-36.0); Mean Platelet Volume 10.1 fL (9.4-12.4); Monocytes % (auto) 7.1 %; Neutrophils # (auto) 12.18 K/uL (1.40-6.50); Neutrophils % (auto) 78.6 %; Platelet Count 204 K/uL (130-400); RDW Coefficient of Variation 13.7 % (11.5-14.5); RDW Standard Deviation 46.9 fL (36.4-46.3); Red Blood Count 4.67 M/uL (4.70-6.10); White Blood Count 15.49 K/ul (4.8-10.8)
[2023-01-11 07:49] LABS: Albumin Globulin Ratio 0.9 (0.9-2); Albumin Level 3.4 gm/dl (3.4-5.0); Bilirubin,Total 1.4 mg/dl (0.2-1.0); C Reactive Protein 1.73 mg/dl (0-0.5); Calcium 8.9 mg/dl (8.6-10.3); Creatinine Clr Calc Pharmacy 56.5 ml/min; Est GFR (African American) 76.2 ml/min; Est GFR (Non-African American) 65.8 ml/min; Globulin 3.7 gm/dl (2.5-4.0); Potassium 4.4 mmol/L (3.5-5.1); Total Protein 7.1 gm/dl (6.0-8.3)
[2023-01-11] MEDS ORDERED: SERTRALINE HCL 50 MG TABLET PO SCH (09:00)
[2023-01-11] MEDS ORDERED: SERTRALINE HCL 100 MG TABLET PO SCH (09:00)
[2023-01-11] MEDS: CARBIDOPA/LEVODOPA 25/100MG TAB PO SCH ×3 (09:43→20:33)
[2023-01-11] MEDS: APIXABAN 5 MG TABLET PO SCH (09:43)
[2023-01-11] MEDS: busPIRone 5 MG TAB PO SCH ×2 (09:43→20:33)
[2023-01-11] MEDS: PANTOprazole 40 MG TAB PO SCH (09:44)
[2023-01-11] MEDS: predniSONE 2.5 MG TAB PO SCH (09:44)
[2023-01-11] MEDS: POTASSIUM CITRATE 10 MEQ TAB PO SCH ×2 (09:44→20:33)
[2023-01-11] MEDS: FINASTERIDE 5 MG TAB PO SCH (09:44)
--- NOTE | 2023-01-11 13:40 | Hospitalist Progress Note ---
Date of Service January 11, 2023 Assessment & Plan (1) Hallucinations: Plan: Acute/unstable - low risk - Suspect progression of his Parkinson's - Consider Nuplazid if frequent, for now will start low dose Seroquel 25mg at HS - Given slow progression of symptoms over many months family wish to consider placement at this time. - Stop memantine and opiates (2) Recurrent falls: Plan: Acute/unstable - high risk - Stop atorvastatin as unlikely any benefit at this time - Will stop Eliquis, discussed with , Gali on 01/11 via phone, she understands risk of stopping medication - PT/OT eval ordered for consideration of placement (3) Skin trauma: Plan: Acute/stable - Routine dressing for now. Consult wound care nurse. 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: Plan: Chronic/unstable - Also with NPH and Parkinsonism - Will hold memantine incase contributing towards hallucinations and unlikely much benefit at this stage - Continue Sinemet - Continue Zoloft and Buspar (9) Permanent atrial fibrillation: Plan: Chronic/stable - Rate controlled - Discussed stopping Eliquis with patient's gali today via phone - She verbalized understanding that risk of stroke will substantially increase - Do agree that the risk of Eliquis use is outweighed at this point d/t fr equent falls by the benefit Plan VTE ppx will be converted to SCDs as Eliquis is going to be discontinued as above. Start low dose Seroquel 25mg at HS. Await PT/OT evals. Contacted and updated patient's , Gali, via phone today and also his daughter, Bernadette. All are in agreement with plan. Discussed aforementioned with Dr. Caruso who is in agreement. Admission and Anticipated Discharge Date Admission Date: January 10, 2023 Supervising Physician Co-Signing Physician Notes The patient was not seen by me. The chart was reviewed. Case discussed with TINO Lopez. Agree with assessment and plan Subjective Patient seen on daily rounds this morning. When entering the room, it was noted that pt was talking to himself as no one else was in the room. He was awake and alert but not oriented to location or time. He verbalizes no complaints. Physical Exam Physical Exam: GENERAL: 82 yo well-developed, well-nourished elderly M. NAD. LUNGS: Clear to auscultation bilaterally w/o W/R/R. CARDIOVASCULAR: S1 S2 irregular NEUROLOGIC: A&O x3. No focal neurological deficits. CN II-XII grossly intact. PSYCHIATRIC: Cooperative. Appropriate mood and affect but continues to have visual hallucinations. SKIN: multiple skin abrasions/tears that are dressed. Results & Data Results & Data Vital Signs (Past 12 Hours) Vital Signs Temp Pulse Resp BP Pulse Ox O2 Del Method 01/11/23 08:00 Room Air 01/11/23 07:54 36.8 C 87 18 145/81 H 95 Room Air Laboratory Results 01/11/23 07:12 01/11/23 07:12 PG Care Time/CCT Total # of Minutes Spent Total Time Spent with Patient: Total time spent is greater than 50% in coordination of care (as documented) at patient's floor/unit and/or counseling patient: Coding Level of Care Code 85606 SUB INP/OBS CARE 2/35MIN Diagnoses Hallucinations R44.3 Recurrent falls R29.6 Skin trauma T14.8XXA Rib fractures S22.49XA KEEGAN (obstructive sleep apnea) G47.33 Sarcoidosis D86.9 BPH (benign prostatic hyperplasia) N40.0 Lower urinary tract symptom presence: symptoms absent 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
[2023-01-11] MEDS: MELATONIN 3 MG TAB PO SCH (20:33)
[2023-01-11] MEDS ORDERED: QUEtiapine FUMARATE 25 MG TABLET PO SCH (21:00)
[2023-01-12] MEDS: FINASTERIDE 5 MG TAB PO SCH (09:15)
[2023-01-12] MEDS: ASPIRIN 81 MG ECTAB PO SCH (09:15)
[2023-01-12] MEDS: CARBIDOPA/LEVODOPA 25/100MG TAB PO SCH ×3 (09:15→20:47)
[2023-01-12] MEDS: PANTOprazole 40 MG TAB PO SCH (09:16)
[2023-01-12] MEDS: predniSONE 2.5 MG TAB PO SCH (09:16)
[2023-01-12] MEDS: POTASSIUM CITRATE 10 MEQ TAB PO SCH ×2 (09:16→20:47)
[2023-01-12] MEDS: SERTRALINE HCL 50 MG TABLET PO SCH (09:16)
--- NOTE | 2023-01-12 12:42 | Hospitalist Progress Note ---
Date of Service January 12, 2023 Assessment & Plan (1) Hallucinations: Plan: Current somnolence is probably due to Seroquel that was started last night. All EXTRUSION BENDER affecting medications have been stopped. Zoloft dosage has been decreased considerably. Supportive care. (2) Recurrent falls: Plan: Eliquis has been stopped. Stopped atorvastatin too, as unlikely any benefit at this time. (3) Skin trauma: Plan: From falling at home. Local care (4) Rib fractures: Plan: Left eighth and ninth anterior fractures at the costochondral junction. Pain control measures. Supportive care. He also has old rib fractures noted on x- ray (5) KEEGAN (obstructive sleep apnea): Plan: Stable. CPAP HS (6) Sarcoidosis: Plan: Stable. Continue prednisone (7) BPH (benign prostatic hyperplasia): Plan: Stable. 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 [employer] shunt has been in place for years. Apparently he had normal pressure hydrocephalus in the past. EXTRUSION BENDER affecting medications have been discontinued. (9) Permanent atrial fibrillation: Plan: Rate controlled. Eliquis has been discontinued due to high risk associated with frequent falls Plan Anticipate discharge to SNF facility later this week Admission and Anticipated Discharge Date Admission Date: January 12, 2023 Subjective Somnolent and barely arousable this morning. He received his first dose of Seroquel last night which is probably the culprit. All EXTRUSION BENDER affecting medications have been discontinued. Zoloft dosage has been decreased considerably. Review of Systems Review of Systems: The patient cannot answer any questions regarding review of systems at this time Physical Exam Physical Exam: General-somnolent. No fevers, no chills HEENT-head atraumatic and normocephalic, pupils equal and reactive to light, extraocular muscles intact Neck-no lymphadenopathy or thyromegaly, trachea midline Chest-clear to auscultation percussion. No rales wheezing or rhonchi Cardiac-irregular controlled rhythm consistent with atrial fibrillation. Normal S1 and S2 Abdomen-normal bowel sounds, no hepatosplenomegaly Extremities-no edema Neuro-cannot assess due to somnolent state Psych-cannot assess due to somnolent state Results & Data Results & Data Vital Signs (Past 12 Hours) Vital Signs Temp Pulse Resp BP Pulse Ox O2 Del Method 01/12/23 07:44 36.3 C L 86 18 131/90 95 Room Air 01/12/23 02:11 20 96 Laboratory Results 01/11/23 07:12 01/11/23 07:12 PG Care Time/CCT Total # of Minutes Spent Total Time Spent with Patient: Total time spent is greater than 50% in coordination of care (as documented) at patient's floor/unit and/or counseling patient: Coding Level of Care Code 60587 SUB INP/OBS CARE 3/50MIN Diagnoses Hallucinations R44.3 Recurrent falls R29.6 Skin trauma T14.8XXA Rib fractures S22.49XA KEEGAN (obstructive sleep apnea) G47.33 Sarcoidosis D86.9 BPH (benign prostatic hyperplasia) N40.0 Lower urinary tract symptom presence: symptoms absent 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
[2023-01-12] MEDS: MELATONIN 3 MG TAB PO SCH (20:47)
--- NOTE | 2023-01-12 22:23 | Electrocardiogram Report ---
Test Reason : Blood Pressure : / mmHG Vent. Rate : 079 BPM Atrial Rate : 000 BPM P-R Int : 000 ms QRS Dur : 078 ms QT Int : 386 ms P-R-T Axes : 000 069 061 degrees QTc Int : 442 ms Atrial fibrillation Abnormal ECG When compared with ECG of 09-JAN-2023 15:04, QRS axis Shifted right Confirmed by Rodrigo Casas ([id number]) on 01/12/2023 10:23:38 PM Referred By: REFERRED SELF Confirmed By:Rodrigo Casas
[2023-01-13] MEDS: CARBIDOPA/LEVODOPA 25/100MG TAB PO SCH ×3 (08:44→20:35)
[2023-01-13] MEDS: FINASTERIDE 5 MG TAB PO SCH (08:44)
[2023-01-13] MEDS: ASPIRIN 81 MG ECTAB PO SCH (08:44)
[2023-01-13] MEDS: PANTOprazole 40 MG TAB PO SCH (08:44)
[2023-01-13] MEDS: POTASSIUM CITRATE 10 MEQ TAB PO SCH ×2 (08:44→20:35)
[2023-01-13] MEDS: predniSONE 2.5 MG TAB PO SCH (08:45)
[2023-01-13] MEDS: SERTRALINE HCL 50 MG TABLET PO SCH (08:45)
[2023-01-13] MEDS ORDERED: predniSONE 20 MG TAB PO STA (15:23)
--- NOTE | 2023-01-13 15:25 | Hospitalist Progress Note ---
Date of Service January 13, 2023 Assessment & Plan (1) Hallucinations: Plan: present on admission. 2nd to parkinsonism?? 2nd to medications? buspar and namenda stopped by prior attending watch for recurrent hallucinations consider MRI brain if needed CT head at admission w/o acute pathology (2) Recurrent falls: Plan: Eliquis has been stopped. Family deciding whether to resume such going forward. 5-10 falls - son's estimate - over the last several months at home. (3) Skin trauma: Plan: From falling at home. Local care (abd wall). (4) Rib fractures: Plan: Left eighth and ninth anterior fractures at the costochondral junction. Schedule tylenol 1gm TID. Lidoderms. Prednisone burst (give 20mg extra today). (5) KEEGAN (obstructive sleep apnea): Plan: Stable. CPAP HS (6) Sarcoidosis: Plan: Stable. Continue prednisone but give stress doses - 20mg extra today, 15mg extra tomorrow, and so forth. (7) BPH (benign prostatic hyperplasia): Plan: Stable. 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 Apparently he had normal pressure hydrocephalus in the past. Low threshold for MRI brain. Check a B1 level in am. B12 level 823 several months ago. (9) Permanent atrial fibrillation: Plan: Rate controlled. Eliquis has been discontinued due to high risk associated with frequent falls - see discussion above. He is not on AV stefano agents at this time. (10) Parkinsonism: Plan: Cont carbidopa-levodopa TID. Plan dispo - SNF for rehab? son updated at bedside Admission and Anticipated Discharge Date Admission Date: January 12, 2023 Subjective patient awake/alert today knows he's at the hospital and that it is 2022 son at bedside - he feels his father's mental status is much better than last week patient with NO complaints except rib pain on left and mild abd pain on left had large BM just prior to my arrival eating well Review of Systems Review of Systems: gen - no fevers cv - no orthopnea GI - no nausea/emesis pulm - no cough Physical Exam Physical Exam: gen - NAD, looks well, awake/alert mouth - MMM neck - no JVD heart - irregular, s1 s2 lungs - CTA b/l chest - tender to palpation over left lower chest wall (rib fractures) abd - mildly distended, BS+, mildly tender over abdominal wall on left, no HSM ext - no edema, pulses 2+ b/l neuro - strength 5/5 x 4 exts; no facial droop; no tremor psych - a/o x 3 musculo - no signs of trauma to any joint Results & Data Results & Data Vital Signs (Past 12 Hours) Vital Signs Temp Pulse Resp BP BP Pulse Ox O2 Del Method 01/13/23 14:28 36.5 C 91 H 16 118/72 90 Room Air 01/13/23 08:00 Room Air 01/13/23 07:05 36.9 C 91 H 18 115/76 93 Room Air PG Care Time/CCT Total # of Minutes Spent Total Time Spent with Patient: Total time spent is greater than 50% in coordination of care (as documented) at patient's floor/unit and/or counseling patient: Coding Level of Care Code 49961 SUB INP/OBS CARE 2/35MIN Diagnoses Hallucinations R44.3 Recurrent falls R29.6 Skin trauma T14.8XXA Rib fractures S22.49XA KEEGAN (obstructive sleep apnea) G47.33 Sarcoidosis D86.9 BPH (benign prostatic hyperplasia) N40.0 Lower urinary tract symptom presence: symptoms absent 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
[2023-01-13] MEDS: ACETAMINOPHEN 500 MG TAB PO SCH ×2 (16:13→20:35)
[2023-01-13] MEDS: LIDOCAINE 5% 1 PATCH TD SCH (16:40)
[2023-01-13] MEDS: MELATONIN 3 MG TAB PO SCH (20:35)
[2023-01-14 07:33] LABS: Basophils # (auto) 0.03 K/uL (0-0.2); Basophils % (auto) 0.2 %; Eosinophils # (auto) 0.01 K/uL (0-0.50); Eosinophils % (auto) 0.1 %; Hematocrit (blood only) 43.1 % (42.0-52.0); Hemoglobin 14.6 g/dl (14.0-18.0); Immature Granulocytes # (auto) 0.15 K/uL (0.01-0.20); Lymphocytes # (auto) 1.12 K/uL (1.2-3.4); Lymphocytes % (auto) 7.5 %; Mean Corpuscular Hemoglobin 32.2 pg (25.0-34.0); Mean Corpuscular Hgb Conc 33.9 g/dL (32.0-36.0); Mean Corpuscular Volume 95.1 fL (80.0-100.0); Mean Platelet Volume 10.9 fL (9.4-12.4); Monocytes # (auto) 0.72 K/uL (0.11-0.59); Monocytes % (auto) 4.8 %; Neutrophils # (auto) 12.87 K/uL (1.40-6.50); Neutrophils % (auto) 86.4 %; Platelet Count 205 K/uL (130-400); RDW Coefficient of Variation 13.6 % (11.5-14.5); RDW Standard Deviation 47.4 fL (36.4-46.3); Red Blood Count 4.53 M/uL (4.70-6.10)
[2023-01-14 07:54] LABS: Albumin Globulin Ratio 0.9 (0.9-2); Albumin Level 3.4 gm/dl (3.4-5.0); BUN Creatinine Ratio 28.3 (10-20); Bilirubin,Total 0.7 mg/dl (0.2-1.0); Calcium 8.9 mg/dl (8.6-10.3); Creatinine Clr Calc Pharmacy 49.4 ml/min; Est GFR (African American) 64.9 ml/min; Globulin 3.6 gm/dl (2.5-4.0); Potassium 4.6 mmol/L (3.5-5.1)
[2023-01-14] MEDS: CARBIDOPA/LEVODOPA 25/100MG TAB PO SCH ×3 (08:01→20:11)
[2023-01-14] MEDS: POTASSIUM CITRATE 10 MEQ TAB PO SCH ×2 (08:01→20:11)
[2023-01-14] MEDS: PANTOprazole 40 MG TAB PO SCH (08:02)
[2023-01-14] MEDS: SERTRALINE HCL 50 MG TABLET PO SCH (08:02)
[2023-01-14] MEDS: ASPIRIN 81 MG ECTAB PO SCH (08:02)
[2023-01-14] MEDS: FINASTERIDE 5 MG TAB PO SCH (08:02)
[2023-01-14] MEDS: predniSONE 2.5 MG TAB PO SCH (08:02)
[2023-01-14] MEDS: ACETAMINOPHEN 500 MG TAB PO SCH ×3 (08:03→20:10)
[2023-01-14] MEDS: LIDOCAINE 5% 1 PATCH TD SCH (08:03)
[2023-01-14 08:21] LABS: Vitamin D, 25 Hydrox 36.4 ng/ml (30-100)
[2023-01-14] MEDS ORDERED: predniSONE 5 MG TAB PO ONE (11:18)
[2023-01-14] MEDS: THIAMINE HCL 100 MG TAB PO SCH ×2 (12:18→20:10)
[2023-01-14] MEDS: oxyCODONE HCL IR 5 MG TAB (IMMEDIATE RELEASE) PO PRN (16:57)
[2023-01-14] MEDS: MELATONIN 3 MG TAB PO SCH (20:10)
--- NOTE | 2023-01-14 21:29 | Hospitalist Progress Note ---
Date of Service January 14, 2023 Assessment & Plan (1) Hallucinations: Plan: present on admission. 2nd to parkinsonism?? 2nd to medications? buspar and namenda stopped by prior attending zoloft dose reduced as well hallucinations resolved, but I am not convinced it was due to medications as those medications listed above are chronic for him ideally we obtain MRI brain he has chronic a.fib - r/o subacute CVA he has chronic sarcoid on steroids - r/o neurosarcoid changes rule out worsening of NPH with enlarging ventricles, etc if MRI is normal --> hallucinations due to parkinsonism?? CT head at admission w/o acute pathology (2) Toxic encephalopathy: Plan: acute possibly due to multiple CRIME DATA SPECIALIST-affecting meds (Buspar, zoloft, namenda, etc) obtaining MRI brain, however, to r/o subacute CVA given his chronic a.fib, chronic sarcoid, etc see #1 above (3) Recurrent falls: Plan: Eliquis has been stopped. Family deciding whether to resume such going forward. 5-10 falls - son's estimate - over the last several months at home. (4) Skin trauma: Plan: From falling at home. Local wound care (abd wall). (5) Rib fractures: Plan: Left eighth and ninth anterior fractures at the costochondral junction. Schedule tylenol 1gm TID. Lidoderms. Prednisone burst (give 15mg extra today). He needs additional pain control - try low-dose oxycodone 2.5mg prn. (6) KEEGAN (obstructive sleep apnea): Plan: Stable. CPAP HS (7) Sarcoidosis: Plan: Stable. Continue prednisone but give stress doses - 15mg extra today, 10mg extra tomorrow, and so forth. (8) BPH (benign prostatic hyperplasia): Plan: Stable. 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 Low threshold for MRI brain. B1 level sent/pending --> start empiric B1 200mg BID while awaiting level. B12 level 823 several months ago. (10) Permanent atrial fibrillation: Plan: Rate controlled at rest. Eliquis has been discontinued due to high risk associated with frequent falls - see discussion above. He is not on AV stefano agents at this time. (11) Parkinsonism: Plan: Cont carbidopa-levodopa TID. Plan dispo - SNF for rehab son updated at bedside Admission and Anticipated Discharge Date Admission Date: January 12, 2023 Subjective patient eating his meal at time of my visit he denies any complaints states he feels pretty good normal appetite son was at bedside we had a discussion about his chronically elevated WBC count and that it may be benign but other pathology should be ruled out we talked about hematology referral post-d/c for this discussed that peripheral smear did not show any suspicious features for acute pathology however plan is still for rehab post-d/c then home following that Review of Systems Review of Systems: cv - no chest pain pulm - no cough, no dyspnea GI - no abd pain or N/V Physical Exam Physical Exam: gen - NAD, looks well, awake/alert, eating his meal in the chair mouth - MMM neck - no JVD heart - irregular, s1 s2, no murmur lungs - CTA b/l chest - only mild tenderness to palpation over left lower chest wall (rib fractures) abd - soft NT ND BS+ ext - no edema, pulses 2+ b/l neuro - no tremor noted Results & Data Results & Data Vital Signs (Past 12 Hours) Vital Signs Temp Pulse Resp BP BP Pulse Ox O2 Del Method 01/14/23 21:17 Room Air 01/14/23 20:17 36.5 C 80 16 104/68 94 Room Air 01/14/23 14:45 36.5 C 92 H 16 148/86 H 94 Room Air Laboratory Results Laboratory Results - last 24 hr 01/14/23 01/14/23 01/14/23 06:45 06:45 06:45 WBC 14.90 H RBC 4.53 L Hgb 14.6 Hct 43.1 MCV 95.1 MCH 32.2 MCHC 33.9 RDW Std Deviation 47.4 H RDW Coeff of Faith 13.6 Plt Count 205 MPV 10.9 Immature Gran % (Auto) 1.0 Neut % (Auto) 86.4 Lymph % (Auto) 7.5 [place] % (Auto) 4.8 Eos % (Auto) 0.1 Baso % (Auto) 0.2 Neut # (Auto) 12.87 H Lymph # (Auto) 1.12 L [place] # (Auto) 0.72 H Eos # (Auto) 0.01 Baso # (Auto) 0.03 Immature Gran # (Auto) 0.15 Peripher Smr Path Cons Sodium 138 Potassium 4.6 Chloride 107 Carbon Dioxide 26 Anion Gap 5 BUN 34 H Creatinine 1.20 Est Cr Clr Drug Dosing 49.4 Est GFR ( Amer) 64.9 Est GFR (Non-Af Amer) 56.0 BUN/Creatinine Ratio 28.3 H Glucose 122 H Calcium 8.9 Total Bilirubin 0.7 AST 34 ALT 6 L Alkaline Phosphatase 86 Total Protein 7.0 Albumin 3.4 Globulin 3.6 Albumin/Globulin Ratio 0.9 Vitamin B1 25-OH Vitamin D Total 36.4 Folate 8.41 01/14/23 01/14/23 06:45 06:45 WBC RBC Hgb Hct MCV MCH MCHC RDW Std Deviation RDW Coeff of Faith Plt Count MPV Immature Gran % (Auto) Neut % (Auto) Lymph % (Auto) [place] % (Auto) Eos % (Auto) Baso % (Auto) Neut # (Auto) Lymph # (Auto) [place] # (Auto) Eos # (Auto) Baso # (Auto) Immature Gran # (Auto) Peripher Smr Path Cons Cancelled Sodium Potassium Chloride Carbon Dioxide Anion Gap BUN Creatinine Est Cr Clr Drug Dosing Est GFR ( Amer) Est GFR (Non-Af Amer) BUN/Creatinine Ratio Glucose Calcium Total Bilirubin AST ALT Alkaline Phosphatase Total Protein Albumin Globulin Albumin/Globulin Ratio Vitamin B1 Pending 25-OH Vitamin D Total Folate PG Care Time/CCT Total # of Minutes Spent Total Time Spent with Patient: Total time spent is greater than 50% in coordination of care (as documented) at patient's floor/unit and/or counseling patient: Coding Level of Care Code 31176 SUB INP/OBS CARE 2/35MIN Diagnoses Hallucinations R44.3 Toxic encephalopathy G92.9 Recurrent falls R29.6 Skin trauma T14.8XXA Rib fractures S22.49XA KEEGAN (obstructive sleep apnea) G47.33 Sarcoidosis D86.9 BPH (benign prostatic hyperplasia) N40.0 Lower urinary tract symptom presence: symptoms absent 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
[2023-01-15 08:12] LABS: Basophils # (auto) 0.04 K/uL (0-0.2); Basophils % (auto) 0.3 %; Eosinophils # (auto) 0.05 K/uL (0-0.50); Eosinophils % (auto) 0.3 %; Hematocrit (blood only) 43.5 % (42.0-52.0); Hemoglobin 14.5 g/dl (14.0-18.0); Immature Granulocytes # (auto) 0.13 K/uL (0.01-0.20); Immature Granulocytes % (auto) 0.9 %; Lymphocytes # (auto) 1.72 K/uL (1.2-3.4); Lymphocytes % (auto) 11.5 %; Mean Corpuscular Hgb Conc 33.3 g/dL (32.0-36.0); Mean Platelet Volume 10.8 fL (9.4-12.4); Monocytes # (auto) 0.98 K/uL (0.11-0.59); Monocytes % (auto) 6.5 %; Neutrophils # (auto) 12.09 K/uL (1.40-6.50); Neutrophils % (auto) 80.5 %; Platelet Count 207 K/uL (130-400); RDW Coefficient of Variation 13.9 % (11.5-14.5); RDW Standard Deviation 48.9 fL (36.4-46.3); Red Blood Count 4.53 M/uL (4.70-6.10); White Blood Count 15.01 K/ul (4.8-10.8)
[2023-01-15] MEDS: ACETAMINOPHEN 500 MG TAB PO SCH ×3 (08:26→20:53)
[2023-01-15] MEDS: POTASSIUM CITRATE 10 MEQ TAB PO SCH ×2 (08:26→20:54)
[2023-01-15] MEDS: THIAMINE HCL 100 MG TAB PO SCH ×2 (08:27→20:53)
[2023-01-15] MEDS: CARBIDOPA/LEVODOPA 25/100MG TAB PO SCH ×3 (08:27→20:54)
[2023-01-15] MEDS: predniSONE 2.5 MG TAB PO SCH (08:28)
[2023-01-15] MEDS: PANTOprazole 40 MG TAB PO SCH (08:28)
[2023-01-15] MEDS: ASPIRIN 81 MG ECTAB PO SCH (08:28)
[2023-01-15] MEDS: SERTRALINE HCL 50 MG TABLET PO SCH (08:28)
[2023-01-15] MEDS: FINASTERIDE 5 MG TAB PO SCH (08:29)
[2023-01-15] MEDS: LIDOCAINE 5% 1 PATCH TD SCH (08:31)
[2023-01-15] MEDS ORDERED: predniSONE 10 MG TABLET PO ONE (09:00)
--- NOTE | 2023-01-15 20:42 | Hospitalist Progress Note ---
Date of Service January 15, 2023 Assessment & Plan (1) Hallucinations: Plan: present on admission. 2nd to parkinsonism?? 2nd to medications? 2nd to VPS malfunction with ill effects from NPH? 2nd to neurosarcoid (likely not)? buspar and namenda stopped by prior attending zoloft dose reduced as well hallucinations resolved, but I am not convinced it was due to medications as those medications listed above are chronic for him ideally we obtain MRI brain w/ and w/o contrast he has chronic a.fib - r/o subacute CVA he has chronic sarcoid on steroids - r/o neurosarcoid changes rule out worsening of NPH with enlarging ventricles, etc unfortunately we cannot perform MRI here as the VPS shunt has to be reprogrammed 4 hours post-MRI I spoke with the [employer] rep that services Strata VPS devices We would only be able to reset the VPS post-MRI if we have an external device that is placed over the reservoir/hub region on back of scalp Not sure if we have that here More than likely we will have to get [place] back [place] [facility] [place] and [place] there CT head at admission w/o acute pathology and ventricles looked ok (2) Toxic encephalopathy: Plan: acute possibly due to multiple DOCTOR'S ASSISTANT-affecting meds (Buspar, zoloft, namenda, etc) MRI brain needed, however, to r/o subacute CVA given his chronic a.fib, chronic sarcoid, NPH, etc see #1 above (3) Recurrent falls: Plan: Eliquis has been stopped. Family deciding whether to resume such going forward. 5-10 falls - son's estimate - over the last several months at home. Family leaning towards not resuming. (4) Skin trauma: Plan: From falling at home. Local wound care (abd wall). (5) Rib fractures: Plan: Left eighth and ninth anterior fractures at the costochondral junction. Schedule tylenol 1gm TID. Lidoderms. Prednisone burst (give 10mg extra today). oxycodone 2.5mg prn. (6) KEEGAN (obstructive sleep apnea): Plan: Stable. CPAP HS (7) Sarcoidosis: Plan: Stable. Continue prednisone but give stress doses - 10mg extra today then resume 2.5mg tomorrow and thereafter. (8) BPH (benign prostatic hyperplasia): Plan: Stable. 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 Low threshold for MRI brain. B1 level sent/pending --> start empiric B1 200mg BID while awaiting level. B12 level 823 several months ago. (10) Permanent atrial fibrillation: Plan: Rate controlled at rest. Eliquis has been discontinued due to high risk associated with frequent falls - see discussion above. He is not on AV stefano agents at this time. (11) Parkinsonism: Plan: Cont carbidopa-levodopa TID. (12) Ventricular shunt in place: Plan: see discussion above no f/u for the shunt since 2018 at [facility] [employer] rep said that even a fall or falls can disrupt the function of the VPS and the flow can be altered Needs VPS checked racquel given his chronic headaches (13) Chronic headache: Plan: 6+ months see #12 above (14) Leukocytosis: Plan: chronic x 3 years etiology? peripheral smear by pathology - nothing suspicious given his weight loss needs heme/onc f/u racquel to r/o bone marrow disorders no evidence of any infectious process while here (15) NPH (normal pressure hydrocephalus): Plan: see discussions above Plan dispo - SNF for rehab - likely next Thursday son updated at bedside and daughter updated at bedside 2 visits to his room today Admission and Anticipated Discharge Date Admission Date: January 12, 2023 Subjective pt's /daughter at bedside when I walked in room he had ice pack over his head reports he has a frontal headache no photophobia no nausea no phonophobia no scalp tenderness no vomiting no h/o migraines earlier in life reports at least 6 months of headaches resolve w/ tylenol twice a week frequency, maybe more has also lost considerable amount of weight over last 12 months despite good appetite Review of Systems Review of Systems: cv - no cp, no orthopnea pulm - no dyspnea GI - no abd pain/n/V Physical Exam Physical Exam: gen - NAD, awake/alert, holding ice pack on head eyes - PERRL scalp - no tenderness to palpation over either temporal artery mouth - MMM neck - no JVD heart - irregular, s1 s2, no murmur lungs - CTA b/l abd - soft NT ND BS+ ext - no edema, pulses 2+ b/l neuro - strength 5/5 x 4 exts Results & Data Results & Data Vital Signs (Past 12 Hours) Vital Signs Temp Pulse Resp BP Pulse Ox O2 Del Method 01/15/23 15:10 36.6 C 75 16 117/74 93 Room Air Laboratory Results Laboratory Results - last 24 hr 01/15/23 06:43 WBC 15.01 H RBC 4.53 L Hgb 14.5 Hct 43.5 MCV 96.0 MCH 32.0 MCHC 33.3 RDW Std Deviation 48.9 H RDW Coeff of Faith 13.9 Plt Count 207 MPV 10.8 Immature Gran % (Auto) 0.9 Neut % (Auto) 80.5 Lymph % (Auto) 11.5 [place] % (Auto) 6.5 Eos % (Auto) 0.3 Baso % (Auto) 0.3 Neut # (Auto) 12.09 H Lymph # (Auto) 1.72 [place] # (Auto) 0.98 H Eos # (Auto) 0.05 Baso # (Auto) 0.04 Immature Gran # (Auto) 0.13 PG Care Time/CCT Total # of Minutes Spent Total Time Spent with Patient: Total time spent is greater than 50% in coordination of care (as documented) at patient's floor/unit and/or counseling patient: Coding Level of Care Code 76494 SUB INP/OBS CARE 3/50MIN Diagnoses Hallucinations R44.3 Toxic encephalopathy G92.9 Recurrent falls R29.6 Skin trauma T14.8XXA Rib fractures S22.49XA KEEGAN (obstructive sleep apnea) G47.33 Sarcoidosis D86.9 BPH (benign prostatic hyperplasia) N40.0 Lower urinary tract symptom presence: symptoms absent 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
[2023-01-15] MEDS: MELATONIN 3 MG TAB PO SCH (20:53)
[2023-01-16] MEDS: oxyCODONE HCL IR 5 MG TAB (IMMEDIATE RELEASE) PO PRN (04:36)
[2023-01-16] MEDS ORDERED: HYDROmorphone INJ 0.5 MG/0.5 ML SYR IV STA (05:13)
--- NOTE | 2023-01-16 07:50 | XRay Report ---
XR skull <4V CLINICAL HISTORY: Visualize VPS [place]/Hub at scalp COMPARISON STUDY: Head CT 01/10/2023. FINDINGS: There is a right parietal approach ventriculostomy catheter again noted with the tip crossi ng the midline. This is unchanged in position. The visualized catheter/tubing appears intact. No calv arial fractures. IMPRESSION: The visualized right parietal approach ventriculostomy catheter and tubing appear intact . ACT 112: Negative or not required by law. Electronically signed by: Amor Galaviz M.D. 01/16/2023 7:49 AM
[2023-01-16] MEDS: POTASSIUM CITRATE 10 MEQ TAB PO SCH ×2 (08:25→21:04)
[2023-01-16] MEDS: THIAMINE HCL 100 MG TAB PO SCH ×2 (08:25→21:05)
[2023-01-16] MEDS: CARBIDOPA/LEVODOPA 25/100MG TAB PO SCH ×3 (08:25→21:04)
[2023-01-16] MEDS: ACETAMINOPHEN 500 MG TAB PO SCH ×3 (08:26→21:03)
[2023-01-16] MEDS: FINASTERIDE 5 MG TAB PO SCH (08:26)
[2023-01-16] MEDS: ASPIRIN 81 MG ECTAB PO SCH (08:26)
[2023-01-16] MEDS: PANTOprazole 40 MG TAB PO SCH (08:26)
[2023-01-16] MEDS: SERTRALINE HCL 50 MG TABLET PO SCH (08:26)
[2023-01-16] MEDS: LIDOCAINE 5% 1 PATCH TD SCH (08:27)
[2023-01-16] MEDS: predniSONE 2.5 MG TAB PO SCH (08:27)
--- NOTE | 2023-01-16 20:23 | Hospitalist Progress Note ---
Date of Service January 16, 2023 Assessment & Plan (1) Hallucinations: Plan: present on admission. 2nd to worsening parkinsonism?? 2nd to medications? 2nd to VPS malfunction with ill effects from NPH? 2nd to neurosarcoid (unlikely)? buspar and namenda stopped by prior attending zoloft dose reduced as well (from 125 to 50mg) hallucinations resolved, but I am not convinced it was due to medications as those medications listed above are chronic for him ideally we obtain MRI brain w/ and w/o contrast he has chronic a.fib - r/o subacute CVA he has chronic sarcoid on steroids - r/o neurosarcoid changes rule out worsening of NPH with enlarging ventricles, etc unfortunately we cannot perform MRI here as the VPS shunt has to be reprogrammed 4 hours post-MRI I spoke with the [employer] rep that services Strata VPS devices We would only be able to reset the VPS post-MRI if we have an external device that is placed over the reservoir/hub region on back of scalp Not sure if we have that here CT head at admission w/o acute pathology and ventricles looked ok [id number] we have set him up to see [facility] in [place] in February 2023 I will push his CT head images via PACs to [facility] Last visit with neurosurgery was in 2019 since it was unlikely that meds caused his presentation will resume namenda (2) NPH (normal pressure hydrocephalus): Plan: s/p VPS Strata device last check - 2018 - neurosurgery in [place] see discussion above in #1 we have set him up to see Neurosurgery in February I am concerned that his progressive headaches over last 6+ months may be due to his NPH see #1 (3) Ventricular shunt in place: Plan: see discussion above no f/u for the shunt since 2018 at [facility] [employer] rep said that even a fall or falls can disrupt the function of the VPS and the flow can be altered Needs VPS checked racquel given his chronic headaches f/u in February [place] [facility] [place]; appt date/time on d/c instructions. (4) Chronic headache: Plan: 6+ months see above sed rate/crp largely normal; temporal arteritis unlikely (5) Toxic encephalopathy: Plan: possible acute 2nd to multiple OPTOMETRIST ASSISTANT-affecting meds (Buspar, zoloft, namenda, etc) MRI brain needed, however, to r/o subacute CVA given his chronic a.fib, chronic sarcoid, NPH, etc see #1 above mental status back at baseline per family (6) Recurrent falls: Plan: Eliquis has been stopped. Family deciding whether to resume such going forward. 5-10 falls over the last several months at home. Family leaning towards not resuming. (7) Skin trauma: Plan: From falling at home. Associated small hematoma/ecchymoses L abdominal wall. (8) Rib fractures: Plan: Left eighth and ninth anterior fractures at the costochondral junction. Cont scheduled tylenol 1gm TID. Lidoderms. Prednisone burst was given, now back to prednisone 2.5mg daily (chronic dose for sarcoid). oxycodone 2.5mg prn. (9) KEEGAN (obstructive sleep apnea): Plan: Stable. CPAP HS (10) Sarcoidosis: Plan: Stable. Continue prednisone 2.5mg daily. s/p steroid burst early in stay. Follows with Dr Vega for this. Family states has been in remission for years. (11) BPH (benign prostatic hyperplasia): Plan: Stable. 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 B1 level sent/pending --> started empiric B1 200mg BID while awaiting level. B12 level 823 several months ago. (13) Permanent atrial fibrillation: Plan: Rate controlled at rest. Eliquis has been discontinued due to high risk associated with frequent falls - see discussion above. Was taking 20mg of inderal daily before this admission. Should resume if BPs allow. (14) Parkinsonism: Plan: Cont carbidopa-levodopa TID. (15) Leukocytosis: Plan: chronic x 3 years etiology? peripheral smear by pathology - nothing suspicious for leukemia, etc given his weight loss needs heme/onc f/u racquel to r/o bone marrow disorders no evidence of any infectious process while here (16) Weight loss: Plan: 11/2021 -- 92.5 kg weight today -- 85kg see above Plan dispo - SNF for rehab - likely next Thursday /son updated at bedside Admission and Anticipated Discharge Date Admission Date: January 12, 2023 Subjective no events overnight / son at bedside during the visit informed them we would be unable to get MRI brain due to lack of external device to reprogram his VPS post-MRI did tell them he is on the books for appt in February with Neurosurgery in [place] to have shunt checked and hopefully have repeat imaging eating well no headache today no new complaints we had discussion again about his anticoagulation confirms that indeed he has had numerous falls last few months (at least 5- 10) Review of Systems Review of Systems: cv - ongoing L lower rib pain (fractures) pul - no cough or dyspnea GI - ongoing left abdominal wall pain (hematoma from fall) Physical Exam Physical Exam: gen - NAD, awake/alert, looks good today mouth - MMM neck - no JVD heart - irregularly irregular, s1 s2, no murmur lungs - CTA b/l abd - soft ND BS+; ecchymoses/small hematoma over left later upper abdominal wall - tender to palpation ext - no edema, pulses 2+ b/l neuro - strength 5/5 x 4 exts lymph - right supraclavicular lymph node ?? Results & Data Results & Data Vital Signs (Past 12 Hours) Vital Signs Temp Pulse Resp BP Pulse Ox O2 Del Method 01/16/23 15:11 36.3 C L 82 16 116/74 93 Room Air PG Care Time/CCT Total # of Minutes Spent Total Time Spent with Patient: Total time spent is greater than 50% in coordination of care (as documented) at patient's floor/unit and/or counseling patient: Coding Level of Care Code 93281 SUB INP/OBS CARE 2/35MIN Diagnoses Hallucinations R44.3 NPH (normal pressure hydrocephalus) G91.[address] Z98.2 Chronic headache R51.9; G89.29 Toxic encephalopathy G92.9 Recurrent falls R29.6 Skin trauma T14.8XXA Rib fractures S22.49XA KEEGAN (obstructive sleep apnea) G47.33 Sarcoidosis D86.9 BPH (benign prostatic hyperplasia) N40.0 Lower urinary tract symptom presence: symptoms absent 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
[2023-01-16] MEDS: MELATONIN 3 MG TAB PO SCH (21:03)
[2023-01-17 07:59] LABS: Basophils # (auto) 0.08 K/uL (0-0.2); Basophils % (auto) 0.6 %; Eosinophils # (auto) 0.16 K/uL (0-0.50); Eosinophils % (auto) 1.1 %; Hematocrit (blood only) 45.1 % (42.0-52.0); Hemoglobin 15.3 g/dl (14.0-18.0); Immature Granulocytes # (auto) 0.22 K/uL (0.01-0.20); Immature Granulocytes % (auto) 1.5 %; Lymphocytes # (auto) 1.98 K/uL (1.2-3.4); Lymphocytes % (auto) 13.9 %; Mean Corpuscular Hemoglobin 32.1 pg (25.0-34.0); Mean Corpuscular Hgb Conc 33.9 g/dL (32.0-36.0); Mean Corpuscular Volume 94.7 fL (80.0-100.0); Mean Platelet Volume 10.2 fL (9.4-12.4); Monocytes # (auto) 1.16 K/uL (0.11-0.59); Monocytes % (auto) 8.1 %; Neutrophils # (auto) 10.65 K/uL (1.40-6.50); Neutrophils % (auto) 74.8 %; Platelet Count 213 K/uL (130-400); RDW Coefficient of Variation 13.9 % (11.5-14.5); RDW Standard Deviation 48.4 fL (36.4-46.3); Red Blood Count 4.76 M/uL (4.70-6.10); White Blood Count 14.25 K/ul (4.8-10.8)
[2023-01-17 08:12] LABS: Anion Gap 5 (3-11); BUN Creatinine Ratio 28.4 (10-20); Blood Urea Nitrogen 29 mg/dl (6-23); C Reactive Protein < 0.50 mg/dl (0-0.5); Calcium 8.8 mg/dl (8.6-10.3); Carbon Dioxide 26 mmol/L (21-32); Chloride 108 mmol/L (98-107); Creatinine Clr Calc Pharmacy 58.2 ml/min; Est GFR (Non-African American) 68.1 ml/min; Glucose 90 mg/dl (70-99(Fasting)); Potassium 4.5 mmol/L (3.5-5.1); Sodium 139 mmol/L (136-145)
[2023-01-17] MEDS: LIDOCAINE 5% 1 PATCH TD SCH (08:28)
[2023-01-17] MEDS: predniSONE 2.5 MG TAB PO SCH (08:29)
[2023-01-17] MEDS: THIAMINE HCL 100 MG TAB PO SCH ×2 (08:29→20:13)
[2023-01-17] MEDS: ACETAMINOPHEN 500 MG TAB PO SCH ×3 (08:30→20:12)
[2023-01-17] MEDS: ASPIRIN 81 MG ECTAB PO SCH (08:30)
[2023-01-17] MEDS: POTASSIUM CITRATE 10 MEQ TAB PO SCH ×2 (08:30→20:13)
[2023-01-17] MEDS: PANTOprazole 40 MG TAB PO SCH (08:30)
[2023-01-17] MEDS: FINASTERIDE 5 MG TAB PO SCH (08:31)
[2023-01-17] MEDS: CARBIDOPA/LEVODOPA 25/100MG TAB PO SCH ×3 (08:31→20:12)
[2023-01-17] MEDS: SERTRALINE HCL 50 MG TABLET PO SCH (08:31)
[2023-01-17] MEDS: MEMANTINE HCL 10 MG TAB PO SCH (20:13)
[2023-01-17] MEDS: MELATONIN 3 MG TAB PO SCH (21:17)
--- NOTE | 2023-01-17 21:51 | Hospitalist Progress Note ---
Date of Service January 17, 2023 Assessment & Plan (1) Hallucinations: Plan: present on admission. 2nd to worsening parkinsonism?? 2nd to medications? 2nd to VPS malfunction with ill effects from NPH? 2nd to neurosarcoid (unlikely)? buspar and namenda stopped by prior attending zoloft dose reduced as well (from 125 to 50mg) hallucinations resolved, but I am not convinced it was due to medications as those medications listed above are chronic for him ideally we obtain MRI brain w/ and w/o contrast he has chronic a.fib - r/o subacute CVA he has chronic sarcoid on steroids - r/o neurosarcoid changes rule out worsening of NPH with enlarging ventricles, etc unfortunately we cannot perform MRI here as the VPS shunt has to be reprogrammed 4 hours post-MRI I spoke with the [employer] rep that services Strata VPS devices We would only be able to reset the VPS post-MRI if we have an external device that is placed over the reservoir/hub region on back of scalp Not sure if we have that here CT head at admission w/o acute pathology and ventricles looked ok [id number] we have set him up to see [facility] in [place] in February 2023 I will push [address] head images via PACs to [facility] Last visit with neurosurgery was in 2019 since it was unlikely that meds caused his presentation will resume namenda. No changes on 01/17 (2) NPH (normal pressure hydrocephalus): Plan: s/p VPS Strata device last check - 2018 - neurosurgery in [place] see discussion above in #1 we have set him up to see Neurosurgery in February I am concerned that his progressive headaches over last 6+ months may be due to his NPH see #1 (3) Ventricular shunt in place: Plan: see discussion above no f/u for the shunt since 2019 at [facility] [employer] rep said that even a fall or falls can disrupt the function of the VPS and the flow can be altered Needs VPS checked racquel given his chronic headaches f/u in February with [place]surgery [place] [facility]; appt date/time on d/c instructions. 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 Family deciding whether to resume such going forward. 5-10 falls over the last several months at home. Family leaning towards not resuming. (7) Skin trauma: Plan: From falling at home. Associated small hematoma/ecchymoses L abdominal wall. (8) Rib fractures: Plan: Left eighth and ninth anterior fractures at the costochondral junction. Cont scheduled tylenol 1gm TID. Lidoderms. Prednisone burst was given, now back to prednisone 2.5mg daily (chronic dose for sarcoid). oxycodone 2.5mg prn. (9) KEEGAN (obstructive sleep apnea): Plan: Stable. CPAP HS (10) Sarcoidosis: Plan: Stable. Continue prednisone 2.5mg daily. s/p steroid burst early in stay. Follows with Dr Vega for this. Family states has been in remission for years. (11) BPH (benign prostatic hyperplasia): Plan: Stable. 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 B1 level sent/pending --> started empiric B1 200mg BID while awaiting level. B12 level 823 several months ago. (13) Permanent atrial fibrillation: Plan: Rate controlled at rest. Eliquis has been discontinued due to high risk associated with frequent falls - see discussion above. Was taking 20mg of inderal daily before this admission. Should resume if BPs allow. (14) Parkinsonism: Plan: Cont carbidopa-levodopa TID. (15) Leukocytosis: Plan: chronic x 3 years etiology? peripheral smear by pathology - nothing suspicious for leukemia, etc given his weight loss needs heme/onc f/u racquel to r/o bone marrow disorders no evidence of any infectious process while here (16) Weight loss: Plan: 11/2021 -- 92.5 kg weight today -- 85kg see above Plan dispo - SNF for rehab - likely next Thursday /son updated at bedside Admission and Anticipated Discharge Date Admission Date: January 12, 2023 Subjective Patient reports no new symptoms. Review of Systems Review of Systems: All systems reviewed & are unremarkable except as noted in HPI & below Physical Exam Physical Exam: gen - NAD, awake/alert mouth - MMM neck - no JVD heart - irregularly irregular, s1 s2, no murmur lungs - CTA b/l abd - soft ND BS+; ecchymoses/small hematoma over left later upper abdominal wall - tender to palpation ext - no edema, pulses 2+ b/l neuro - strength 5/5 x 4 exts lymph - right supraclavicular lymph node ?? Results & Data Results & Data Vital Signs (Past 12 Hours) Vital Signs Temp Pulse Resp BP Pulse Ox O2 Del Method 01/17/23 21:40 36.9 C 104 H 18 118/82 94 Room Air 01/17/23 19:35 Room Air, CPAP 01/17/23 15:00 36.8 C 85 16 116/63 94 Room Air PG Care Time/CCT Total # of Minutes Spent Total Time Spent with Patient: Total time spent is greater than 50% in coordination of care (as documented) at patient's floor/unit and/or counseling patient: Coding Level of Care Code 83187 SUB INP/OBS CARE 2/35MIN Diagnoses Hallucinations R44.3 NPH (normal pressure hydrocephalus) G91.[address] Z98.2 Chronic headache R51.9; G89.29 Toxic encephalopathy G92.9 Recurrent falls R29.6 Skin trauma T14.8XXA Rib fractures S22.49XA KEEGAN (obstructive sleep apnea) G47.33 Sarcoidosis D86.9 BPH (benign prostatic hyperplasia) N40.0 Lower urinary tract symptom presence: symptoms absent 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
[2023-01-17] MEDS ORDERED: NYSTATIN POWDER 15GM BTL EXT PRN (21:52)
[2023-01-18 06:10] LABS: Hematocrit (blood only) 45.4 % (42.0-52.0); Hemoglobin 15.1 g/dl (14.0-18.0); Mean Corpuscular Hemoglobin 31.7 pg (25.0-34.0); Mean Corpuscular Hgb Conc 33.3 g/dL (32.0-36.0); Mean Corpuscular Volume 95.2 fL (80.0-100.0); Mean Platelet Volume 10.7 fL (9.4-12.4); Platelet Count 229 K/uL (130-400); RDW Coefficient of Variation 14.2 % (11.5-14.5); RDW Standard Deviation 49.4 fL (36.4-46.3); Red Blood Count 4.77 M/uL (4.70-6.10); White Blood Count 14.33 K/ul (4.8-10.8)
[2023-01-18 06:28] LABS: BUN Creatinine Ratio 26.1 (10-20); Calcium 8.9 mg/dl (8.6-10.3); Creatinine Clr Calc Pharmacy 51.6 ml/min; Est GFR (African American) 68.3 ml/min; Est GFR (Non-African American) 58.9 ml/min; Potassium 4.2 mmol/L (3.5-5.1)
[2023-01-18] MEDS: THIAMINE HCL 100 MG TAB PO SCH ×2 (08:15→20:40)
[2023-01-18] MEDS: POTASSIUM CITRATE 10 MEQ TAB PO SCH ×2 (08:16→20:40)
[2023-01-18] MEDS: MEMANTINE HCL 10 MG TAB PO SCH ×2 (08:16→20:39)
[2023-01-18] MEDS: CARBIDOPA/LEVODOPA 25/100MG TAB PO SCH ×3 (08:16→20:38)
[2023-01-18] MEDS: ACETAMINOPHEN 500 MG TAB PO SCH ×3 (08:16→20:41)
[2023-01-18] MEDS: PANTOprazole 40 MG TAB PO SCH (08:17)
[2023-01-18] MEDS: predniSONE 2.5 MG TAB PO SCH (08:17)
[2023-01-18] MEDS: SERTRALINE HCL 50 MG TABLET PO SCH (08:17)
[2023-01-18] MEDS: ASPIRIN 81 MG ECTAB PO SCH (08:17)
[2023-01-18] MEDS: FINASTERIDE 5 MG TAB PO SCH (08:18)
[2023-01-18] MEDS: LIDOCAINE 5% 1 PATCH TD SCH (08:19)
--- NOTE | 2023-01-18 15:37 | Hospitalist Progress Note ---
Date of Service January 18, 2023 Assessment & Plan (1) Hallucinations: Plan: present on admission. 2nd to worsening parkinsonism?? 2nd to medications? 2nd to VPS malfunction with ill effects from NPH? 2nd to neurosarcoid (unlikely)? buspar and namenda stopped by prior attending zoloft dose reduced as well (from 125 to 50mg) hallucinations resolved, but I am not convinced it was due to medications as those medications listed above are chronic for him ideally we obtain MRI brain w/ and w/o contrast he has chronic a.fib - r/o subacute CVA he has chronic sarcoid on steroids - r/o neurosarcoid changes rule out worsening of NPH with enlarging ventricles, etc unfortunately we cannot perform MRI here as the VPS shunt has to be reprogrammed 4 hours post-MRI I spoke with the [employer] rep that services Strata VPS devices We would only be able to reset the VPS post-MRI if we have an external device that is placed over the reservoir/hub region on back of scalp Not sure if we have that here CT head at admission w/o acute pathology and ventricles looked ok [id number] we have set him up to see [facility] in [place] in February 2023 I will push his CT head images via PACs to [facility] Last visit with neurosurgery was in 2019 since it was unlikely that meds caused his presentation will resume namenda. No changes on 01/18 (2) NPH (normal pressure hydrocephalus): Plan: s/p VPS Strata device last check - 2018 - neurosurgery in [place] see discussion above in #1 we have set him up to see Neurosurgery in February I am concerned that his progressive headaches over last 6+ months may be due to his NPH see #1 (3) Ventricular shunt in place: Plan: see discussion above no f/u for the shunt since 2019 at [facility] [employer] rep said that even a fall or falls can disrupt the function of the VPS and the flow can be altered Needs VPS checked racquel given his chronic headaches f/u in February with neurosurgery at [facility] [place] as scheduled; appt date/time on d/c instructions. 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 Family deciding whether to resume such going forward. 5-10 falls over the last several months at home. Family leaning towards not resuming. (7) Skin trauma: Plan: From falling at home. Associated small hematoma/ecchymoses L abdominal wall. (8) Rib fractures: Plan: Left eighth and ninth anterior fractures at the costochondral junction. Cont scheduled tylenol 1gm TID. Lidoderms. Prednisone burst was given, now back to prednisone 2.5mg daily (chronic dose for sarcoid). oxycodone 2.5mg prn. (9) KEEGAN (obstructive sleep apnea): Plan: Stable. CPAP HS (10) Sarcoidosis: Plan: Stable. Continue prednisone 2.5mg daily. s/p steroid burst early in stay. Follows with Dr Vega for this. Family states has been in remission for years. (11) BPH (benign prostatic hyperplasia): Plan: Stable. 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 B1 level sent/pending --> started empiric B1 200mg BID while awaiting level. B12 level 823 several months ago. (13) Permanent atrial fibrillation: Plan: Rate controlled at rest. Eliquis has been discontinued due to high risk associated with frequent falls - see discussion above. Was taking 20mg of inderal daily before this admission. Should resume if BPs allow. (14) Parkinsonism: Plan: Cont carbidopa-levodopa TID. (15) Leukocytosis: Plan: chronic x 3 years etiology? peripheral smear by pathology - nothing suspicious for leukemia, etc given his weight loss needs heme/onc f/u racquel to r/o bone marrow disorders no evidence of any infectious process while here (16) Weight loss: Plan: 11/2021 -- 92.5 kg weight today -- 85kg see above Plan dispo - SNF for rehab - likely next Thursday /son updated at bedside Admission and Anticipated Discharge Date Admission Date: January 12, 2023 Subjective Patient reports no new symptoms. Review of Systems Review of Systems: All systems reviewed & are unremarkable except as noted in HPI & below Physical Exam Physical Exam: gen - NAD, awake/alert mouth - MMM neck - no JVD heart - irregularly irregular, s1 s2, no murmur lungs - CTA b/l abd - soft ND BS+; ecchymoses/small hematoma over left later upper abdominal wall - tender to palpation ext - no edema, pulses 2+ b/l neuro - strength 5/5 x 4 exts lymph - right supraclavicular lymph node ?? Results & Data Results & Data Vital Signs (Past 12 Hours) Vital Signs Temp Pulse Resp BP Pulse Ox O2 Del Method 01/18/23 15:07 36.6 C 85 16 120/82 94 Room Air 01/18/23 07:47 36.4 C L 83 16 124/81 94 Room Air 01/18/23 07:20 Room Air PG Care Time/CCT Total # of Minutes Spent Total Time Spent with Patient: Total time spent is greater than 50% in coordination of care (as documented) at patient's floor/unit and/or counseling patient: Coding Level of Care Code 62047 SUB INP/OBS CARE /25MIN Diagnoses Hallucinations R44.3 NPH (normal pressure hydrocephalus) G91.[address] Z98.2 Chronic headache R51.9; G89.29 Toxic encephalopathy G92.9 Recurrent falls R29.6 Skin trauma T14.8XXA Rib fractures S22.49XA KEEGAN (obstructive sleep apnea) G47.33 Sarcoidosis D86.9 BPH (benign prostatic hyperplasia) N40.0 Lower urinary tract symptom presence: symptoms absent 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
[2023-01-18] MEDS: MELATONIN 3 MG TAB PO SCH (20:43)
[2023-01-19 07:30] LABS: Hematocrit (blood only) 46.5 % (42.0-52.0); Hemoglobin 15.4 g/dl (14.0-18.0); Mean Corpuscular Hgb Conc 33.1 g/dL (32.0-36.0); Mean Corpuscular Volume 96.5 fL (80.0-100.0); Mean Platelet Volume 10.1 fL (9.4-12.4); Platelet Count 210 K/uL (130-400); RDW Coefficient of Variation 14.4 % (11.5-14.5); Red Blood Count 4.82 M/uL (4.70-6.10); White Blood Count 14.18 K/ul (4.8-10.8)
[2023-01-19 07:48] LABS: BUN Creatinine Ratio 24.3 (10-20); Calcium 8.8 mg/dl (8.6-10.3); Creatinine Clr Calc Pharmacy 53.5 ml/min; Est GFR (African American) 71.3 ml/min; Est GFR (Non-African American) 61.5 ml/min; Potassium 4.3 mmol/L (3.5-5.1)
[2023-01-19] MEDS: LIDOCAINE 5% 1 PATCH TD SCH (08:27)
[2023-01-19] MEDS: SERTRALINE HCL 50 MG TABLET PO SCH (08:28)
[2023-01-19] MEDS: CARBIDOPA/LEVODOPA 25/100MG TAB PO SCH ×3 (08:28→20:47)
[2023-01-19] MEDS: FINASTERIDE 5 MG TAB PO SCH (08:28)
[2023-01-19] MEDS: THIAMINE HCL 100 MG TAB PO SCH ×2 (08:29→20:46)
[2023-01-19] MEDS: ACETAMINOPHEN 500 MG TAB PO SCH ×3 (08:29→20:47)
[2023-01-19] MEDS: predniSONE 2.5 MG TAB PO SCH (08:29)
[2023-01-19] MEDS: MEMANTINE HCL 10 MG TAB PO SCH ×2 (08:29→20:48)
[2023-01-19] MEDS: ASPIRIN 81 MG ECTAB PO SCH (08:30)
[2023-01-19] MEDS: POTASSIUM CITRATE 10 MEQ TAB PO SCH ×2 (08:30→20:47)
[2023-01-19] MEDS: PANTOprazole 40 MG TAB PO SCH (08:30)
[2023-01-19] MEDS ORDERED: SERTRALINE HCL 50 MG TABLET PO ONE (17:00)
--- NOTE | 2023-01-19 17:08 | Hospitalist Progress Note ---
Date of Service January 19, 2023 Assessment & Plan (1) Hallucinations: Plan: present on admission. 2nd to worsening parkinsonism?? 2nd to medications? 2nd to VPS malfunction with ill effects from NPH? 2nd to neurosarcoid (unlikely)? buspar and namenda stopped by prior attending zoloft dose reduced as well (from 125 to 50mg) hallucinations resolved, but I am not convinced it was due to medications as those medications listed above are chronic for him-increase sertraline back to home dose ideally we obtain MRI brain w/ and w/o contrast he has chronic a.fib - r/o subacute CVA he has chronic sarcoid on steroids - r/o neurosarcoid changes rule out worsening of NPH with enlarging ventricles, etc unfortunately we cannot perform MRI here as the VPS shunt has to be reprogrammed 4 hours post-MRI Previous hospitalist spoke with the [employer] rep that services Strata VPS devices We would only be able to reset the VPS post-MRI if we have an external device that is placed over the reservoir/hub region on back of scalp Not sure if we have that here CT head at admission w/o acute pathology and ventricles looked ok Repeat head CT 01/19 for drowsiness again negative [id number] we have set him up to see [facility] in [place] in February 2023 I will push his CT head images via PACs to [facility] Last visit with neurosurgery was in 2019 since it was unlikely that meds caused his presentation have resumed namenda and will also increase zoloft back to home dose 125mg daily -discontinue oxycodone (2) NPH (normal pressure hydrocephalus): Plan: s/p VPS Strata device last check - 2018 - neurosurgery in [place] see discussion above in #1 we have set him up to see Neurosurgery in February I am concerned that his progressive headaches over last 6+ months may be due to his NPH However, headache seems gone now (3) Ventricular shunt in place: Plan: see discussion above no f/u for the shunt since 2018 at [facility] clinic [employer] rep said that even a fall or falls can disrupt the function of the VPS and the flow can be altered Needs VPS checked racquel given his chronic headaches f[place] in February with [place] [facility] [place]; appt date/time on d/c instructions. (4) Chronic headache: Plan: 6+ months see above sed rate/crp largely normal; temporal arteritis unlikely (5) Toxic encephalopathy: Plan: possible secondary to Namenda or oxycodone? MRI brain needed, however, to r/o subacute CVA given his chronic a.fib, chronic sarcoid, NPH, etc see #1 above mental status back at baseline per family except increased drowsiness 01/19--> no evidence of infection anywhere, no fevers, no other symptoms--> checked repeat head CT and neg for ICH (6) Recurrent falls: Plan: Eliquis has been stopped. Family deciding whether to resume such going forward. 5-10 falls over the last several months at home. Family leaning towards not resuming. (7) Skin trauma: Plan: From falling at home. Associated small hematoma/ecchymoses L abdominal wall. (8) Rib fractures: Plan: Left eighth and ninth anterior fractures at the costochondral junction. Cont scheduled tylenol 1gm TID. Lidoderms. Prednisone burst was given, now back to prednisone 2.5mg daily (chronic dose for sarcoid). dc oxycodone as may lead to AMS (9) KEEGAN (obstructive sleep apnea): Plan: Stable. CPAP HS (10) Sarcoidosis: Plan: Stable. Continue prednisone 2.5mg daily. s/p steroid burst early in stay. Follows with Dr Vega for this. Family states has been in remission for years. (11) BPH (benign prostatic hyperplasia): Plan: Stable. 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 B1 level low at 9 started empiric B1 200mg BID and would continue for 1 month B12 level 823 several months ago. (13) Permanent atrial fibrillation: Plan: Rate controlled at rest. Eliquis has been discontinued due to high risk associated with frequent falls - see discussion above. Was taking 20mg of inderal daily before this admission. resume on discharge as BPs acceptable (14) Parkinsonism: Plan: Cont carbidopa-levodopa TID. (15) Leukocytosis: Plan: chronic x 3 years etiology? peripheral smear by pathology - nothing suspicious for leukemia, etc given his weight loss needs heme/onc f/u racquel to r/o bone marrow disorders no evidence of any infectious process while here (16) Weight loss: Plan: 11/2021 -- 92.5 kg weight today -- 85kg see above (17) Vitamin B1 deficiency: Plan: as above replace (18) Seborrheic dermatitis: Plan: start HC cream behind ears bilat (19) Balanitis: Plan: start clotrimazole cream to penis bid Plan dispo - SNF for rehab -tomorrow /son updated at bedside Admission and Anticipated Discharge Date Admission Date: January 12, 2023 Subjective at bedside said pt very drowsy the last two days. Pt is awake and answers questions appropriately. Denies headache. Is eating and drinking, moving bowels, no urinary issues, no nausea. Pain in ribs controlled ALso c/o itching in penis and rash behind ears Physical Exam Constitutional: WD/WN, vitals as above Eyes: PERRL, conjunctivae normal, anicteric sclerae ENMT: external ear and nose normal, oropharynx normal Neck: trachea midline, no thyromegaly Respiratory: normal respiratory effort, lungs clear to auscultation Cardiovascular: RRR, no murmur, no edema Chest (Breasts): Chest: normal inspection of chest Gastrointestinal (Abdomen): normal bowel sounds, soft, nontender, no hepat osplenomegaly Musculoskeletal: Extremities: extremities normal to inspection; no cyanosis and no clubbing Skin: + rash (postauricular region with pink rash with greasy white scaly skin) Neurologic: CN's II-XI intact bilaterally, moves all extremities and awake; no focal motor deficits Psychiatric: Orientation: alert, oriented to person, oriented to place and cooperative Genitourinary: + penis abnormality (mild erythema and white exudate rivers) Lymphatic: no lymphedema Results & Data Results & Data Vital Signs (Past 12 Hours) Vital Signs Temp Pulse Resp BP BP Pulse Ox O2 Del Method 01/19/23 15:48 90 114/72 01/19/23 15:02 36.5 C 110 H 18 151/78 H 94 Room Air 01/19/23 07:38 36.4 C L 89 16 128/86 96 Room Air 01/19/23 07:25 Room Air Laboratory Results CBC, BMP negative PG Care Time/CCT Total # of Minutes Spent Total Time Spent with Patient: Total time spent is greater than 50% in coordination of care (as documented) at patient's floor/unit and/or counseling patient: Coding Level of Care Code 20360 SUB INP/OBS CARE 235MIN Diagnoses Hallucinations R44.3 NPH (normal pressure hydrocephalus) G91.[address] Z98.2 Chronic headache R51.9; G89.29 Toxic encephalopathy G92.9 Recurrent falls R29.6 Skin trauma T14.8XXA Rib fractures S22.49XA KEEGAN (obstructive sleep apnea) G47.33 Sarcoidosis D86.9 BPH (benign prostatic hyperplasia) N40.0 Lower urinary tract symptom presence: symptoms absent 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
[2023-01-19] MEDS: HYDROCORTISONE 1% OINT 30 GM TUBE EXT SCH (17:40)
[2023-01-19] MEDS: CLOTRIMAZOLE 1% CR 15 GM TUBE EXT SCH ×2 (17:41→20:48)
[2023-01-19] MEDS: MELATONIN 3 MG TAB PO SCH (20:46)
--- NOTE | 2023-01-19 20:56 | CT Scan Report ---
Exam(s): CT HEAD Without Contrast EXAM: CT Head Without Intravenous Contrast CLINICAL HISTORY: Reason for exam: drowsiness,fall,on anticoagulation,r/o ICH. TECHNIQUE: Axial computed tomography images of the head/brain without intravenous contrast. CTDI is 37.39 mGy and DLP is 625.8 mGy-cm. Automated exposure control was utilized for the study. A dose lowering technique was utilized adhering to the principles of ALARA. COMPARISON: Head CT January 03, 2023. FINDINGS: No acute intracranial hemorrhage. No midline shift or mass effect. The territorial mendoza-white matter differentiation is maintained throughout. RIGHT EVD shunt catheter terminates in the LEFT basal ganglia. Age-related cerebral volume loss. Periventricular and subcortical white matter hypoattenuation, consistent with chronic microangiopathy. The visualized orbits appear grossly unremarkable. The calvarium is intact. The visualized paranasal sinuses and mastoid air cells are grossly clear. IMPRESSION: No acute intracranial hemorrhage, midline shift, or mass effect. Electronically signed by: Luke Pagan MD 01/19/23 20:54 PM
[2023-01-20] MEDS ORDERED: KETOROLAC TROMETHAMINE 15 MG/ML VIAL IV ONE (05:57)
[2023-01-20] MEDS ORDERED: SERTRALINE HCL 50 MG TABLET PO SCH (09:00)
[2023-01-20] MEDS: ASPIRIN 81 MG ECTAB PO SCH (09:42)
[2023-01-20] MEDS: ACETAMINOPHEN 500 MG TAB PO SCH ×2 (09:42→13:46)
[2023-01-20] MEDS: CARBIDOPA/LEVODOPA 25/100MG TAB PO SCH ×2 (09:43→13:46)
[2023-01-20] MEDS: FINASTERIDE 5 MG TAB PO SCH (09:44)
[2023-01-20] MEDS: HYDROCORTISONE 1% OINT 30 GM TUBE EXT SCH (09:44)
[2023-01-20] MEDS: CLOTRIMAZOLE 1% CR 15 GM TUBE EXT SCH (09:44)
[2023-01-20] MEDS: LIDOCAINE 5% 1 PATCH TD SCH (09:45)
[2023-01-20] MEDS: POTASSIUM CITRATE 10 MEQ TAB PO SCH (09:46)
[2023-01-20] MEDS: MEMANTINE HCL 10 MG TAB PO SCH (09:46)
[2023-01-20] MEDS: PANTOprazole 40 MG TAB PO SCH (09:46)
[2023-01-20] MEDS: predniSONE 2.5 MG TAB PO SCH (09:47)
[2023-01-20] MEDS: THIAMINE HCL 100 MG TAB PO SCH (09:49)
--- NOTE | 2023-01-20 14:50 | Discharge Summary ---
Date of Service January 20, 2023 Admission HPI Per Admitting Provider Elvis Reyes is an 82 year old male with Parkinson's disease who presents to the ER due to recurrent falls and hallucinations. Unable to get any significant history from the patient although he is aware he is in hospital he is unable to tell me why he is here. He denies any pain at this time or any concerns. His son at bedside provides the history. Progressive decline with worsening falls over multiple months. Appears to be increased decline the last 10 days after fall on January 03. Significant worsening visual hallucinations, difficulty with ambulation and decreased appetite. No dysphagia, nausea, vomiting, change in bowels. No headache, shortness of breath or change in urine. His son feels he is no longer safe to be at home and requesting placement. Principal Diagnosis problem 1 Discharge Exam gen - NAD, awake/alert mouth - MMM neck - no JVD heart - irregularly irregular, s1 s2, no murmur lungs - CTA b/l abd - soft ND BS+; ecchymoses/small hematoma over left later upper abdominal wall - slightly tender to palpation ext - no edema, pulses 2+ b/l neuro - strength 5/5 x 4 exts lymph - right supraclavicular lymph node ?? Discharge Data Allergies Allergy/AdvReac Type Severity Reaction Status Date / Time amoxicillin Allergy Intermediate rash Verified 01/10/23 16:44 Penicillins Allergy Unknown AMOXICILLIN Verified 01/10/23 16:44 CAUSES RASH, NO RESP. PROBLEMS PER DR. LORENZO Ordered Studies 01/10/23 13:39 CT head/brain wo con Stat 01/10/23 15:34 CT abd pelvis IV con only Stat 01/19/23 17:05 CT head/brain wo con Urgent Hospital Course (1) Hallucinations: present on admission. 2nd to worsening parkinsonism?? 2nd to medications? 2nd to VPS malfunction with ill effects from NPH? 2nd to neurosarcoid (unlikely)? buspar and namenda stopped by prior attending zoloft dose reduced as well (from 125 to 50mg) hallucinations resolved, but I am not convinced it was due to medications as those medications listed above are chronic for him-increase sertraline back to home dose ideally we obtain MRI brain w/ and w/o contrast he has chronic a.fib - r/o subacute CVA he has chronic sarcoid on steroids - r/o neurosarcoid changes rule out worsening of NPH with enlarging ventricles, etc unfortunately we cannot perform MRI here as the VPS shunt has to be reprogrammed 4 hours post-MRI Previous hospitalist spoke with the [employer] that services Strata VPS devices We would only be able to reset the VPS post-MRI if we have an external device that is placed over the reservoir/hub region on back of scalp Not sure if we have that here CT head at admission w/o acute pathology and ventricles looked ok Repeat head CT 01/19 for drowsiness again negative [id number] we have set him up to see [facility] in [place] in February 2023 I will push his CT head images via PACs to [facility] Last visit with neurosurgery was in 2019 since it was unlikely that meds caused his presentation have resumed namenda and will also increase zoloft back to home dose 125mg daily -discontinue oxycodone Discharge plan noted below (2) NPH (normal pressure hydrocephalus): s/p VPS Strata device last check - 2018 - neurosurgery in [place] see discussion above in #1 we have set him up to see Neurosurgery in February I am concerned that his progressive headaches over last 6+ months may be due to his NPH However, headache seems gone now (3) Ventricular shunt in place: see discussion above no f/u for the shunt since 2018 at [facility] [employer] said that even a fall or falls can disrupt the function of the VPS and the flow can be altered Needs VPS checked racquel given his chronic headaches f/u in February with neurosurgery at [facility] as scheduled; appt date/time on d/c instructions. (4) Chronic headache: 6+ months see above sed rate/crp largely normal; temporal arteritis unlikely (5) Toxic encephalopathy: possible secondary to Namenda or oxycodone? MRI brain needed, however, to r/o subacute CVA given his chronic a.fib, chronic sarcoid, NPH, etc see #1 above mental status back at baseline per family except increased drowsiness 01/19--> no evidence of infection anywhere, no fevers, no other symptoms--> checked repeat head CT and neg for ICH (6) Recurrent falls: Eliquis has been stopped. Family deciding whether to resume such going forward. 5-10 falls over the last several months at home. Family leaning towards not resuming. (7) Skin trauma: From falling at home. Associated small hematoma/ecchymoses L abdominal wall. (8) Rib fractures: Left eighth and ninth anterior fractures at the costochondral junction. Cont scheduled tylenol 1gm TID. Lidoderms. Prednisone burst was given, now back to prednisone 2.5mg daily (chronic dose for sarcoid). dc oxycodone as may lead to AMS (9) KEEGAN (obstructive sleep apnea): Stable. CPAP HS (10) Sarcoidosis: Stable. Continue prednisone 2.5mg daily. s/p steroid burst early in stay. Follows with Dr Vega for this. Family states has been in remission for years. (11) BPH (benign prostatic hyperplasia): Stable. 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 [employer] shunt has been in place for years (2013 at [facility]) due to NPH. B1 level low at 9 started empiric B1 200mg BID and would continue for 1 month B12 level 823 several months ago. (13) Permanent atrial fibrillation: Rate controlled at rest. Eliquis has been discontinued due to high risk associated with frequent falls - see discussion above. Was taking 20mg of inderal daily before this admission. resume on discharge as BPs acceptable (14) Parkinsonism: Cont carbidopa-levodopa TID. (15) Leukocytosis: chronic x 3 years etiology? peripheral smear by pathology - nothing suspicious for leukemia, etc given his weight loss needs heme/onc f/u racquel to r/o bone marrow disorders no evidence of any infectious process while here (16) Weight loss: 11/2021 -- 92.5 kg weight today -- 85kg see above (17) Vitamin B1 deficiency: as above replace (18) Seborrheic dermatitis: start HC cream behind ears bilat (19) Balanitis: start clotrimazole cream to penis bid Total Time Total Time Spent Total Time Spent (In Minutes): 32 Discharge Plan Discharge Items Patient Disposition: Transfer Shelter Fac Reason For Visit: HALLUCINATION, PROGRESSIVE WORSENING WEAKNESS Discharge Diagnosis: hallucination/ progressive weakness Activity: Resume your previous activity Non-emergency contact: Primary Care Provider Call non-emergency contact if: you have any medication questions Follow-up/Referrals: Corby Vega MD [Primary Care Provider] - Willy Gonzáles MD [Outside Practitioners] - 02/24/23 2:00 pm (Please arrive 15 minutes prior to appointment time. Please use the Christy Entrance Take the D elevator to the 2nd floor Please bring ID, insurance card, and payment for any co-pay.) Aurea Johnson MD [Physician] - (Dr Johnson or any provider; dx - chronic leukocytosis, weight loss, ?right supraclavicular lymphadenopathy?) Diet: Regular Addtl Attending Provider Instructions: FOLLOWUP WITH DR. VEGA IN 1-2 WEEKS Followup with [facility] in [place] in February 2023 given his weight loss needs heme/oncology follow up racquel to r/o bone marrow disorders Holding eliquis given recent falls. will recommend to followup with PCP Cont tylenol 1gm TID. Lidoderms. Prednisone burst was given, now back to prednisone 2.5mg daily (chronic dose for sarcoid). Continue Viatmin B1 200mg twice a day for one month HC cream behind ears bilaterally for one week clotrimazole cream to penis bid for 10 more days Pending Studies at Discharge: No Stand-Alone Forms: My [facility] Skilled Items Patient informed of condition?: No DNR: Yes Discharge Level of Care: Skilled Communicable Disease: No Discharge Prognosis: Stable Lines: None Urinary Catheter: No Medications and DC Order Prescriptions: New aspirin 81 mg Tablet,Delayed Release (Dr/Ec) 81 mg PO QAM Qty: 30 0RF clotrimazole 1 % Cream 1 applic EXT BID 10 Days Qty: 15 0RF hydrocortisone 1 % Ointment 1 applic EXT BID 7 Days Qty: 28.35 0RF lidocaine 5 % Adhesive Patch,Medicated 3 patch transdermal QAM Qty: 30 0RF thiamine HCl (vitamin B1) 100 mg Tablet 200 mg PO BID Qty: 120 0RF Continued carbidopa-levodopa [Sinemet] 25-100 mg tablet 1 tab PO TID Qty: 270 3RF finasteride 5 mg tablet 5 mg PO QAM Qty: 90 3RF propranolol 20 mg tablet 20 mg PO DAILY Qty: 90 3RF acetaminophen [Tylenol] 325 mg Tablet 650 mg PO Q6H PRN (Reason: pain/fever) cholecalciferol (vitamin D3) [Vitamin D3] 2,000 unit Capsule 2,000 unit PO QAM cyanocobalamin (vitamin B-12) [Vitamin B-12] 1,000 mcg Tablet 1,000 mcg PO QAM melatonin 3 mg Tablet 3 mg PO QPM atorvastatin 10 mg tablet 10 mg PO DAILY memantine 10 mg tablet 10 mg PO BID pantoprazole 40 mg tablet,delayed release (DR/EC) 40 mg PO DAILY potassium citrate 10 mEq (1,080 mg) tablet extended release 20 meq PO BID Rx Instructions: TAKE AT 8AM AND 4:30PM prednisone 2.5 mg tablet 2.5 mg PO DAILY sertraline 100 mg tablet 100 mg PO DAILY Rx Instructions: TAKE WITH 25MG = 125MG DAILY sertraline 25 mg tablet 25 mg PO DAILY Rx Instructions: TAKE WITH 100MG DAILY = 125MG DAILY zinc acetate 50 mg (zinc) Capsule 50 mg PO DAILY Discontinued Eliquis 5 mg tablet 5 mg PO BID Qty: 180 3RF buspirone 5 mg tablet 5 mg PO BID Qty: 60 3RF oxycodone 5 mg tablet 5 mg PO Q6H PRN (Reason: pain) Qty: 15 0RF Discharge Orders: Discharge Order (Routine); Ordered 01/20/23 Ordered By: Nishant Pascual/Other Patient Handouts: [facility] Admission Data Admit Date/Time: 01/12/23 09:35 Attending Provider: Nishant Rojas Admit Provider: Carlos Alberto Goodwin Primary Care Provider: Corby Vega Other Providers: Dent,Care Other Interventions: Discharge Summary Assessment (RN) Last Done: 01/20/23 15:46 Coding Level of Care Code 02996 INP/OBS DISCH >30 MIN Diagnoses Hallucinations R44.3 NPH (normal pressure hydrocephalus) G91.[address] Z98.2 Chronic headache R51.9; G89.29 Toxic encephalopathy G92.9 Recurrent falls R29.6 Skin trauma T14.8XXA Rib fractures S22.49XA KEEGAN (obstructive sleep apnea) G47.33 Sarcoidosis D86.9 BPH (benign prostatic hyperplasia) N40.0 Lower urinary tract symptom presence: symptoms absent 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
== END 2023-01-20 16:15 | DRG 56 ==
LOC: 3N 13:00 → ED 13:00 → SUATTDRO 18:58 → 3N 21:50 → SUATTDRO 01-12 09:35